=== PATIENT | female | born 1940 | race Caucasian/White ===

== ENCOUNTER 2017-01-30 19:04 | Emergency (ER) | payer MEDICARE ==
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
[2017-01-30 23:49] VITALS: BP 152/62
--- NOTE | 2017-01-31 07:46 | RAD ---
HISTORY: Left leg pain COMPARISONS: July 29, 2008 VIEWS: 2, Frontal and lateral views of the left knee FINDINGS: BONE DENSITY: Normal. BONES: There is no displaced fracture. JOINTS: There is advanced tricompartmental osteoarthritis, progressed from 2008. ALIGNMENT: There is no dislocation. SOFT TISSUES: Unremarkable. OTHER FINDINGS: None. IMPRESSION: ADVANCED OSTEOARTHRITIS. NO ACUTE OSSEOUS INJURY. IF SYMPTOMS PERSIST, RECOMMEND REPEAT IMAGING.
--- NOTE | 2017-01-31 07:53 | RAD ---
HISTORY: Left leg pain COMPARISONS: None VIEWS: 3, Frontal view of the pelvis with frontal and frog-leg views of the left hip FINDINGS: BONE DENSITY: Normal. BONES: There is no displaced fracture. JOINTS: There is moderate osteoarthritis of the hips bilaterally. ALIGNMENT: There is no dislocation. SOFT TISSUES: Unremarkable. OTHER FINDINGS: Degenerative changes are noted of the spine IMPRESSION: OSTEOARTHRITIS. NO ACUTE OSSEOUS INJURY. IF SYMPTOMS PERSIST, RECOMMEND REPEAT IMAGING.
== END 2017-01-30 23:49 | disposition home or self-care (01) ==
LOC: ED 19:04
DX: M79.662 Pain in left lower leg (principal)
CPT/HCPCS: 99282

== ENCOUNTER 2018-02-28 20:33 | Inpatient (IN) | payer MEDICARE ==
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
[2018-03-01 00:41] LABS: ABS Basophils 0.1 10^3/ul (0-0.2); ABS Eosinophils 0.2 10^3/ul (0-0.6); ABS Lymphocytes 2.2 10^3/ul (1.0-4.8); ABS Monocytes 0.7 10^3/ul (0-0.8); ABS Neutrophils 5.9 10^3/ul (1.5-7.7); ABS Nucleated RBC 0 10^3/ul; Eosinophil % 2.4 % (0-6); Hematocrit 40 % (35-47); Hemoglobin 13.2 g/dl (12.0-16.0); Mean Corpuscular HGB Conc 33 g/dl (31-36); Mean Corpuscular Hemoglobin 29 pg (27-31); Mean Corpuscular Volume 88 fL (80-97); Mean Platelet Volume 9.5 um3 (7.4-10.4); Nucleated Red Blood Cells % 0.1; Platelet Count 206 10^3/ul (150-450); Red Blood Count 4.59 10^6/ul (4.00-5.40); Red Cell Distribution Width 15 % (10.5-15); White Blood Count 9.1 10^3/ul (3.5-10.8)
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
[2018-03-01 00:57] LABS: INR 1.04 (0.77-1.02)
[2018-03-01 00:58] LABS: EGFR Non-African American 19.2 (>60)
[2018-03-01] MEDS ORDERED: Ondansetron ODT TAB* 4 MG PO PRN (01:24)
[2018-03-01] MEDS ORDERED: Acetaminophen TAB* 325 MG PO PRN (01:24)
[2018-03-01] MEDS ORDERED: Melatonin 3 MG TAB PO PRN (01:24)
[2018-03-01] MEDS ORDERED: NS 0.9% 1000 ML* 1,000 ML IV SCH (01:30)
[2018-03-01] MEDS: Insulin LISPRO* 1 UNITS UNIT SUBCUT SCH ×5 (03:36→16:41)
[2018-03-01] MEDS: NS 0.9% 1000 ML* 1,000 ML IV SCH ×2 (03:43→06:47)
[2018-03-01 07:59] LABS: EGFR Non-African American 26.7 (>60)
--- NOTE | 2018-03-01 08:03 | RAD ---
HISTORY: weight loss COMPARISONS: October 17, 2011 VIEWS: 1: frontal portable view of the chest at 12:25 AM FINDINGS: LINES AND TUBES: None. CARDIOMEDIASTINAL SILHOUETTE: The cardiomediastinal silhouette is normal for portable technique. PLEURA: The costophrenic angles are sharp. No pleural abnormalities are noted. LUNG PARENCHYMA: The lungs are clear. ABDOMEN: The upper abdomen is clear. There is no subphrenic gas. BONES AND SOFT TISSUES: Degenerative changes are noted along the spine. IMPRESSION: NO ACTIVE CARDIOPULMONARY DISEASE. R1
[2018-03-01] MEDS ORDERED: Magnesium Sulf 4 GM/100 ML IV* 4,000 MG/100 ML BAG IVPB ONE (08:34)
[2018-03-01] MEDS ORDERED: Calcium Gluconate INJ* 1 GM in NS 0.9% 50 ML* 50 ML IVPB ONE (08:39)
[2018-03-01] MEDS ORDERED: Pantoprazole IV* 40 MG IV SCH (09:00)
[2018-03-01] MEDS: Docusate CAP* 100 MG PO SCH ×2 (09:43→21:18)
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
[2018-03-01] MEDS: Sertraline* 100 MG TAB PO SCH (15:36)
[2018-03-01] MEDS: Aspirin 81 mg CHEW TAB* 81 MG TAB.CHEW PO SCH (15:36)
[2018-03-01] MEDS: Heparin VIAL(*) 5000 UNITS/ML VIAL (FIVE THOUSAND) SUBCUT SCH ×2 (15:36→21:19)
[2018-03-01] MEDS: Atenolol TAB* 50 MG PO SCH ×2 (15:36→15:50)
[2018-03-01] MEDS: Atorvastatin* 10 MG TAB PO SCH (17:16)
[2018-03-01] MEDS ORDERED: Ropinirole TAB* 0.5 MG TAB PO SCH ×2 (18:00→20:00)
[2018-03-01] MEDS: Mometasone/Formoter 200/5 MDI INH SCH (19:45)
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
[2018-03-01] MEDS: Ropinirole TAB* 0.5 MG TAB PO SCH (21:17)
[2018-03-01] MEDS: Pantoprazole IV* 40 MG IV SCH (21:19)
[2018-03-02] MEDS: Heparin VIAL(*) 5000 UNITS/ML VIAL (FIVE THOUSAND) SUBCUT SCH ×3 (05:00→21:30)
[2018-03-02 06:30] LABS: EGFR Non-African American 41.8 (>60)
[2018-03-02] MEDS: Mometasone/Formoter 200/5 MDI INH SCH ×2 (08:02→20:09)
[2018-03-02] MEDS: Insulin LISPRO* 1 UNITS UNIT SUBCUT SCH ×3 (08:07→16:37)
[2018-03-02] MEDS: Pantoprazole IV* 40 MG IV SCH ×2 (08:31→20:49)
[2018-03-02] MEDS: Sertraline* 100 MG TAB PO SCH (08:31)
[2018-03-02] MEDS: Oxybutynin XL TAB* 5 MG PO SCH (08:32)
[2018-03-02] MEDS: Docusate CAP* 100 MG PO SCH ×2 (08:32→20:48)
[2018-03-02] MEDS: Aspirin 81 mg CHEW TAB* 81 MG TAB.CHEW PO SCH (08:32)
[2018-03-02] MEDS: Atenolol TAB* 50 MG PO SCH (08:32)
--- NOTE | 2018-03-02 09:43 | RAD ---
Indication: Nausea, emesis. Real-time sonography of the right upper quadrant was performed. The liver measures 14 cm in length. Several echogenic foci are noted consistent with pneumobilia. No focal masses or intrahepatic duct dilatation is noted. Gallbladder is nonvisualized. Common duct is not visualized. Right kidney measures 11.9 x 4.9 x 5.2 cm. The visualized portions of the pancreas are unremarkable. IMPRESSION: There appears to be pneumobilia noted. The liver is echogenic. No focal lesions are noted. Gallbladder and common duct are not visualized.
[2018-03-02] MEDS ORDERED: Magnesium Oxide TAB* 400 MG PO ONE (15:40)
--- NOTE | 2018-03-02 15:41 | PN ---
Subjective Date of Service: 03/02/18 Interval History: Ms. Sanford feels hopeless. She continues to have no appetite and hasn't eaten anything yet today. No abdominal pain, no nausea, no diarrhea, no fevers. Objective Active Medications: Acetaminophen (Tylenol Tab*) 650 mg PO Q6H PRN PRN Reason: FEVER/PAIN Aspirin (Aspirin 81 Mg Chew Tab*) 81 mg PO DAILY [facility] Last Admin: 03/02/18 08:32 Dose: 81 mg Atenolol (Tenormin Tab*) 50 mg PO DAILY [facility] Last Admin: 03/02/18 08:32 Dose: Not Given Atorvastatin Calcium (Lipitor*) 20 mg PO 1700 [facility] Last Admin: 03/01/18 17:16 Dose: 20 mg Docusate Sodium (Colace Cap*) 200 mg PO BID [facility] Last Admin: 03/02/18 08:32 Dose: Not Given Heparin Sodium (Porcine) (Heparin Vial(*)) 5,000 units SUBCUT Q8HR [facility] Last Admin: 03/02/18 13:46 Dose: 5,000 units Sodium Chloride (Ns 0.9% 1000 Ml*) 1,000 mls @ 125 mls/hr IV PER RATE [facility] Insulin Human Lispro (Humalog*) 0 units SUBCUT AC [facility]; Protocol Last Admin: 03/02/18 11:53 Dose: 2 units Melatonin (Melatonin) 3 mg PO BEDTIME PRN; Protocol PRN Reason: Sleep Mometasone Furoate/Formoterol Fumar (Dulera 200/5 Mdi*) 2 puff INH BID [facility] Last Admin: 03/02/18 08:02 Dose: 2 puff Ondansetron HCl (Zofran Odt Tab*) 4 mg PO Q6H PRN PRN Reason: n/v Oxybutynin Chloride (Ditropan Xl Tab*) 5 mg PO DAILY [facility] Last Admin: 03/02/18 08:32 Dose: 5 mg Pantoprazole Sodium (Protonix Iv*) 40 mg IV BID [facility] Last Admin: 03/02/18 08:31 Dose: 40 mg Ropinirole HCl (Requip Tab*) 0.25 mg PO 2000 [facility] Last Admin: 03/01/18 21:17 Dose: 0.25 mg Sertraline HCl (Zoloft*) 100 mg PO DAILY [facility] Last Admin: 03/02/18 08:31 Dose: 100 mg Vital Signs - 8 hr 03/02/18 03/02/18 03/02/18 07:47 08:02 11:28 Temperature 97.6 F 97.8 F Pulse Rate 54 55 54 Respiratory 20 20 20 Rate Blood Pressure 112/56 118/95 (mmHg) O2 Sat by Pulse 98 98 100 Oximetry 03/02/18 03/02/18 15:12 15:30 Temperature 97.5 F Pulse Rate 56 Respiratory 22 Rate Blood Pressure 97/44 110/65 (mmHg) O2 Sat by Pulse 97 Oximetry Oxygen Devices in Use Now: None Appearance: alert, sad Eyes: No Scleral Icterus Ears/Nose/Mouth/Throat: NL Teeth, Lips, Gums Neck: NL Appearance and Movements; NL JVP Respiratory: Symmetrical Chest Expansion and Respiratory Effort Cardiovascular: NL Sounds; No Murmurs; No JVD Abdominal: NL Sounds; No Tenderness; No Distention, No Hepatosplenomegaly, - Lymphatic: No Cervical Adenopathy Extremities: No Edema Skin: No Rash or Ulcers Neurological: Alert and Oriented x 3 - Nutrition: Malnutrition Diagnosis/Plan Malnutrition Assessment by Registered Dietitian: Malnutrition Assessment Clinical Characteristics Chronic,Severe Malnutrition Assessment: - 15% wt loss x past 3 months Criteria - < 75% estimated energy expenditure for at least 1 month Malnutrition Assessment: - Will monitor for diet advancement and offer Interventions snacks/supplements as able. Malnutrition Assessment: Goals 1. Ultimately, intake will maintain lean body mass and hydration w/o additional undesired wt loss. Result Diagrams: 03/01/18 00:27 03/02/18 05:56 Assess/Plan/Problems-Billing Assessment: 77 year old female with history of HTN, DM, and depression admitted from PCP office for 40 lb weight loss. - Patient Problems (1) Unintentional weight loss Current Visit: Yes Status: Acute Code(s): R63.4 - ABNORMAL WEIGHT LOSS SNOMED Code(s): 392902741 Comment: malignancy and gastroparesis are on the differential, as is major depression gastric emptying study today, report pending gallbladder US showed pneumobilia but she has no RUQ pain and her LFTs are normal. a fistula could explain pneumobilia and her symptoms, but she does not have a good reason to have a fistula plan for EGD on Sunday and possibly a colonoscopy; GI following (2) Depression Current Visit: Yes Status: Acute Code(s): F32.9 - MAJOR DEPRESSIVE DISORDER , SINGLE EPISODE, UNSPECIFIED SNOMED Code(s): 04650741 Comment: This may be contributing to her weight loss She had been taking sertraline but did not get a refill she is agreeable to restarting it (3) HTN (hypertension) Current Visit: Yes Status: Acute Code(s): I10 - ESSENTIAL (PRIMARY) HYPERTENSION SNOMED Code(s): 07003831 Comment: bp at goal on home atenolol (4) Diabetes mellitus Current Visit: Yes Status: Acute Code(s): E11.9 - TYPE 2 DIABETES MELLITUS WITHOUT COMPLICATIONS SNOMED Code(s): 80907176 Comment: BG at goal on sliding scale
[2018-03-02] MEDS: Atorvastatin* 10 MG TAB PO SCH (16:37)
[2018-03-02] MEDS: Potassium Chloride LIQUID* 20 MEQ PACKET PO SCH (20:47)
[2018-03-02] MEDS: Ropinirole TAB* 0.5 MG TAB PO SCH (20:49)
[2018-03-02] MEDS: Nystatin TOP POWDER* 15 GM BTL TOPICAL SCH (20:50)
[2018-03-03] MEDS: Heparin VIAL(*) 5000 UNITS/ML VIAL (FIVE THOUSAND) SUBCUT SCH ×3 (05:59→21:23)
[2018-03-03 06:03] LABS: ABS Basophils 0 10^3/ul (0-0.2); ABS Eosinophils 0.2 10^3/ul (0-0.6); ABS Lymphocytes 1.5 10^3/ul (1.0-4.8); ABS Monocytes 0.5 10^3/ul (0-0.8); ABS Neutrophils 3.5 10^3/ul (1.5-7.7); ABS Nucleated RBC 0 10^3/ul; Eosinophil % 4.1 % (0-6); Hematocrit 33 % (35-47); Lymphocyte % 26.4 % (25-47); Mean Corpuscular HGB Conc 33 g/dl (31-36); Mean Corpuscular Hemoglobin 29 pg (27-31); Mean Corpuscular Volume 87 fL (80-97); Mean Platelet Volume 9.3 um3 (7.4-10.4); Nucleated Red Blood Cells % 0.1; Platelet Count 178 10^3/ul (150-450); Red Blood Count 3.83 10^6/ul (4.00-5.40); Red Cell Distribution Width 15 % (10.5-15); White Blood Count 5.8 10^3/ul (3.5-10.8)
[2018-03-03] MEDS ORDERED: Potassium Chloride LIQUID* 20 MEQ PACKET PO ONE (07:11)
[2018-03-03] MEDS ORDERED: Magnesium Sulfate IV* 3 GM in NS 0.9% 100 ML* 100 ML IVPB ONE (07:30)
[2018-03-03] MEDS: Insulin LISPRO* 1 UNITS UNIT SUBCUT SCH ×3 (08:28→17:03)
[2018-03-03] MEDS: Mometasone/Formoter 200/5 MDI INH SCH ×2 (08:32→19:57)
[2018-03-03] MEDS: Sertraline* 100 MG TAB PO SCH (08:54)
[2018-03-03] MEDS: Docusate CAP* 100 MG PO SCH ×2 (08:54→21:16)
[2018-03-03] MEDS: Oxybutynin XL TAB* 5 MG PO SCH (08:55)
[2018-03-03] MEDS: Aspirin 81 mg CHEW TAB* 81 MG TAB.CHEW PO SCH (08:55)
--- NOTE | 2018-03-03 09:16 | PN ---
Subjective Date of Service: 03/03/18 Interval History: No overnight events. Patient states she had cereal this morning which she has not been able to eat in a long time. States she got very nauseated but did not vomit. REmains nauseated. States she doesn't care about eating anymore. Talks about her family all grown up, not having anyone around and being bored at home. No abdominal pain. Normal BM this AM. No CP or SOB. Ambulating to the bathroom. Objective Active Medications: Acetaminophen (Tylenol Tab*) 650 mg PO Q6H PRN PRN Reason: FEVER/PAIN Aspirin (Aspirin 81 Mg Chew Tab*) 81 mg PO DAILY [facility] Last Admin: 03/03/18 08:55 Dose: 81 mg Atenolol (Tenormin Tab*) 50 mg PO DAILY [facility] Last Admin: 03/02/18 08:32 Dose: Not Given Atorvastatin Calcium (Lipitor*) 20 mg PO 1700 [facility] Last Admin: 03/02/18 16:37 Dose: 20 mg Docusate Sodium (Colace Cap*) 200 mg PO BID [facility] Last Admin: 03/03/18 08:54 Dose: Not Given Heparin Sodium (Porcine) (Heparin Vial(*)) 5,000 units SUBCUT Q8HR [facility] Last Admin: 03/03/18 05:59 Dose: 5,000 units Sodium Chloride (Ns 0.9% 1000 Ml*) 1,000 mls @ 125 mls/hr IV PER RATE [facility] Magnesium Sulfate 3 gm/ Sodium (Chloride) 106 mls @ 53 mls/hr IVPB ONCE ONE Stop: 03/03/18 09:29 Insulin Human Lispro (Humalog*) 0 units SUBCUT [facility]; Protocol Last Admin: 03/03/18 08:28 Dose: Not Given Magnesium Oxide (Magox 400 Tab*) 800 mg PO DAILY [facility] Melatonin (Melatonin) 3 mg PO BEDTIME PRN; Protocol PRN Reason: Sleep Mometasone Furoate/Formoterol Fumar (Dulera 200/5 Mdi*) 2 puff INH BID [facility] Last Admin: 03/03/18 08:32 Dose: 2 puff Nystatin (Nystatin Top Powder*) 1 applic TOPICAL TID [facility] Last Admin: 03/02/18 20:50 Dose: 1 dose Ondansetron HCl (Zofran Odt Tab*) 4 mg PO Q6H PRN PRN Reason: n/v Oxybutynin Chloride (Ditropan Xl Tab*) 5 mg PO DAILY [facility] Last Admin: 03/03/18 08:55 Dose: 5 mg Pantoprazole Sodium (Protonix Iv*) 40 mg IV BID [facility] Last Admin: 03/02/18 20:49 Dose: 40 mg Potassium Chloride (Klor-Con Liquid*) 40 meq PO BID [facility] Last Admin: 03/02/18 20:47 Dose: 40 meq Ropinirole HCl (Requip Tab*) 0.25 mg PO 2000 [facility] Last Admin: 03/02/18 20:49 Dose: 0.25 mg Sertraline HCl (Zoloft*) 100 mg PO DAILY [facility] Last Admin: 03/03/18 08:54 Dose: 100 mg Vital Signs - 8 hr 03/03/18 03/03/18 03:11 08:33 Temperature 98.6 F Pulse Rate 59 60 Respiratory 20 16 Rate Blood Pressure 121/48 (mmHg) O2 Sat by Pulse 97 97 Oximetry Oxygen Devices in Use Now: None Appearance: NAD Ears/Nose/Mouth/Throat: Mucous Membranes Moist, - - poor dentition Neck: Trachea Midline Respiratory: Symmetrical Chest Expansion and Respiratory Effort, Clear to Percussion Cardiovascular: RRR, - - systolic murmur Abdominal: NL Sounds; No Tenderness; No Distention, No Hepatosplenomegaly Extremities: No Edema Neurological: Alert and Oriented x 3, NL Muscle Strength and Tone - Nutrition: Malnutrition Diagnosis/Plan Malnutrition Assessment by Registered Dietitian: Malnutrition Assessment Clinical Characteristics Chronic,Severe Malnutrition Assessment: - 15% wt loss x past 3 months Criteria - < 75% estimated energy expenditure for at least 1 month Malnutrition Assessment: - Will monitor for diet advancement and offer Interventions snacks/supplements as able. Malnutrition Assessment: Goals 1. Ultimately, intake will maintain lean body mass and hydration w/o additional undesired wt loss. Result Diagrams: 03/03/18 05:28 03/03/18 05:28 Assess/Plan/Problems-Billing Assessment: 77 year old female with history of HTN, DM, and depression admitted from PCP office for 40 lb weight loss with N/V and dysguesia - Patient Problems (1) Unintentional weight loss Current Visit: Yes Status: Acute Code(s): R63.4 - ABNORMAL WEIGHT LOSS SNOMED Code(s): 553046768 Comment: A. Associated with N/V and dysguesia malignancy and gastroparesis are on the differential, as is major depression gastric emptying study Sunday gallbladder US showed pneumobilia but no pain or lab abnormalities - No hx of ERCP/sphincterotomy. Will obtain CT abd/pelvis as gallbladder and biliary tree was not visualized on ultrasound plan for EGD on Sunday and possibly a colonoscopy; GI following Start calorie count (2) Electrolyte abnormality Current Visit: Yes Status: Acute Code(s): E87.8 - OTH DISORDERS OF ELECTROLYTE AND FLUID BALANCE, NEC SNOMED Code(s): 749572715 Comment: A. Continues to have hypokalemia and hypomagnesemia - Likely related to poor nutritional intake Plan Continue K (only got one dose thus far) Mg 3 gm and oral daily Repeat labs in AM (3) Nausea & vomiting Current Visit: Yes Status: Acute Code(s): R11.2 - NAUSEA WITH VOMITING, UNSPECIFIED SNOMED Code(s): 92488273 Comment: A. As above. WOrk up unremarkable thus far GI involved Plan EGD in AM (4) Depression Current Visit: Yes Status: Acute Code(s): F32.9 - MAJOR DEPRESSIVE DISORDER , SINGLE EPISODE, UNSPECIFIED SNOMED Code(s): 94368146 Comment: This may be contributing to her weight loss Continue sertraline (5) Diabetes mellitus Current Visit: Yes Status: Acute Code(s): E11.9 - TYPE 2 DIABETES MELLITUS WITHOUT COMPLICATIONS SNOMED Code(s): 06097675 Comment: A. HgbA1c 7.9 BG at goal on sliding scale Continue lispro sliding scale Continue to hold oral agents (6) HTN (hypertension) Current Visit: Yes Status: Acute Code(s): I10 - ESSENTIAL (PRIMARY) HYPERTENSION SNOMED Code(s): 73497975 Comment: Low normal This AM in the 90's systolic - drop likely related to weight loss Plan Decrease atenolol dose (7) Normocytic anemia Current Visit: Yes Status: Acute Code(s): D64.9 - ANEMIA, UNSPECIFIED SNOMED Code(s): 129154179 Comment: A/P Drop in H/H from admission Not symptomatic Check hemoccult and iron studies, b12 (8) DVT prophylaxis Current Visit: Yes Status: Acute Code(s): RYH3340 - SNOMED Code(s): 174138380 Comment: Heparin SQ TID (9) DNR (do not resuscitate) Current Visit: Yes Status: Acute Status and Disposition: Awaiting EGD and possible colonoscopy for work up of N/V and weight loss
[2018-03-03] MEDS: Pantoprazole IV* 40 MG IV SCH ×2 (09:51→20:23)
[2018-03-03] MEDS: Potassium Chloride LIQUID* 20 MEQ PACKET PO SCH ×2 (11:03→20:32)
[2018-03-03] MEDS: Nystatin TOP POWDER* 15 GM BTL TOPICAL SCH ×3 (11:04→20:36)
[2018-03-03] MEDS: Atenolol TAB* 25 MG PO SCH (11:05)
[2018-03-03] MEDS: Atenolol TAB* 50 MG PO SCH (11:14)
[2018-03-03] MEDS ORDERED: Iodixanol* (CONTRAST) 320 MG/ML 100 ML SDV IV ONE (14:15)
--- NOTE | 2018-03-03 15:30 | RAD ---
Indication: Nausea and vomiting with weight loss. CT of the abdomen and pelvis was performed after oral and IV contrast administration. Coronal and sagittal reconstructed images were obtained. No prior study is available for comparison. The lung bases demonstrate a peripheral nodule in the left lower lobe measuring 4 mm. This nodule was likely present on a previous exam dated September 29, 2003. No pleural fluid is identified. The heart demonstrates no pericardial effusion. The liver is normal in size. There are no focal lesions noted. There appears to be biliary air in the left lobe of liver. Patient appears to be status post cholecystectomy. There also appears to be air within the common bile duct. The pancreas demonstrates no mass or pancreatic duct dilatation. The spleen is normal in size. No adrenal lesions are noted. The kidneys demonstrate symmetric nephrograms without hydronephrosis. Atherosclerotic aorta is noted. CT of the pelvis demonstrates diverticulosis. No definite evidence of diverticulitis is noted. No dilated loops of bowel are noted. No evidence of bowel obstruction is noted. There is an anterior abdominal wall hernia containing omentum. Multilevel degenerative disc disease is noted in the lumbar spine. IMPRESSION: Anterior abdominal wall hernia containing omentum. There are no evidence of bowel obstruction. There is pneumobilia of uncertain etiology. Air is noted in the common duct. Clinical correlation with history of recent sphincterotomy is suggested. Patient is status post cholecystectomy.
[2018-03-03] MEDS: Atorvastatin* 10 MG TAB PO SCH (17:16)
[2018-03-03] MEDS: Ropinirole TAB* 0.5 MG TAB PO SCH (21:26)
[2018-03-03] MEDS: NS 0.9% 1000 ML* 1,000 ML IV SCH (23:55)
[2018-03-04 05:56] LABS: ABS Basophils 0 10^3/ul (0-0.2); ABS Eosinophils 0.3 10^3/ul (0-0.6); ABS Lymphocytes 1.5 10^3/ul (1.0-4.8); ABS Monocytes 0.5 10^3/ul (0-0.8); ABS Neutrophils 3.4 10^3/ul (1.5-7.7); ABS Nucleated RBC 0 10^3/ul; Eosinophil % 4.6 % (0-6); Hematocrit 33 % (35-47); Hemoglobin 10.9 g/dl (12.0-16.0); Lymphocyte % 26.8 % (25-47); Mean Corpuscular HGB Conc 33 g/dl (31-36); Mean Corpuscular Hemoglobin 29 pg (27-31); Mean Corpuscular Volume 88 fL (80-97); Mean Platelet Volume 9.4 um3 (7.4-10.4); Nucleated Red Blood Cells % 0.1; Platelet Count 160 10^3/ul (150-450); Red Blood Count 3.73 10^6/ul (4.00-5.40); Red Cell Distribution Width 15 % (10.5-15); White Blood Count 5.8 10^3/ul (3.5-10.8)
[2018-03-04] MEDS: Heparin VIAL(*) 5000 UNITS/ML VIAL (FIVE THOUSAND) SUBCUT SCH ×3 (06:09→21:39)
[2018-03-04 06:14] LABS: EGFR Non-African American 53.4 (>60)
[2018-03-04] MEDS ORDERED: Magnesium Sulfate 2 GM IV* 2 GM/50 ML BAG IVPB ONE (07:25)
[2018-03-04] MEDS: Mometasone/Formoter 200/5 MDI INH SCH ×2 (08:01→19:49)
--- NOTE | 2018-03-04 09:38 | PN ---
Subjective Date of Service: 03/04/18 Interval History: HOSPITALIST PROGRESS NOTE Patient seen and examined at bedside. She feels a little better today. Denies abdominal pain this AM, no N/V so far, but NPO for EGD. States "everything tastes flat, I don't see the point in eating ". Family History: Unchanged from Admission Social History: Unchanged from Admission Past Medical History: Unchanged from Admission Objective Active Medications: Acetaminophen (Tylenol Tab*) 650 mg PO Q6H PRN PRN Reason: FEVER/PAIN Aspirin (Aspirin 81 Mg Chew Tab*) 81 mg PO DAILY [facility] Last Admin: 03/03/18 08:55 Dose: 81 mg Atenolol (Tenormin Tab*) 12.5 mg PO DAILY [facility] Last Admin: 03/03/18 11:05 Dose: 12.5 mg Atorvastatin Calcium (Lipitor*) 20 mg PO 1700 [facility] Last Admin: 03/03/18 17:16 Dose: 20 mg Docusate Sodium (Colace Cap*) 200 mg PO BID [facility] Last Admin: 03/03/18 21:16 Dose: Not Given Heparin Sodium (Porcine) (Heparin Vial(*)) 5,000 units SUBCUT Q8HR [facility] Last Admin: 03/04/18 06:09 Dose: 5,000 units Sodium Chloride (Ns 0.9% 1000 Ml*) 1,000 mls @ 125 mls/hr IV PER RATE [facility] Last Admin: 03/03/18 23:55 Dose: 125 mls/hr Potassium Chloride (Potassium Chloride 10 Meq/50 Ml Ivpremix*) 10 meq in 50 mls @ 50 mls/hr IV Q1H [facility] Stop: 03/04/18 10:59 Insulin Human Lispro (Humalog*) 0 units SUBCUT AC [facility]; Protocol Last Admin: 03/03/18 17:03 Dose: Not Given Magnesium Oxide (Magox 400 Tab*) 800 mg PO DAILY [facility] Melatonin (Melatonin) 3 mg PO BEDTIME PRN; Protocol PRN Reason: Sleep Mometasone Furoate/Formoterol Fumar (Dulera 200/5 Mdi*) 2 puff INH BID [facility] Last Admin: 03/04/18 08:01 Dose: 2 puff Nystatin (Nystatin Top Powder*) 1 applic TOPICAL TID [facility] Last Admin: 03/03/18 20:36 Dose: 1 dose Ondansetron HCl (Zofran Odt Tab*) 4 mg PO Q6H PRN PRN Reason: n/v Oxybutynin Chloride (Ditropan Xl Tab*) 5 mg PO DAILY [facility] Last Admin: 03/03/18 08:55 Dose: 5 mg Pantoprazole Sodium (Protonix Iv*) 40 mg IV BID [facility] Last Admin: 03/03/18 20:23 Dose: 40 mg Potassium Chloride (Klor-Con Liquid*) 40 meq PO BID [facility] Last Admin: 03/03/18 20:32 Dose: 40 meq Ropinirole HCl (Requip Tab*) 0.25 mg PO 1999 [facility] Last Admin: 03/03/18 21:26 Dose: 0.25 mg Sertraline HCl (Zoloft*) 100 mg PO DAILY [facility] Last Admin: 03/03/18 08:54 Dose: 100 mg Vital Signs - 8 hr 03/04/18 08:44 Pulse Rate 66 Respiratory 18 Rate O2 Sat by Pulse 98 Oximetry Oxygen Devices in Use Now: None Appearance: Pleasant obese lady lying in bed in NAD. Eyes: No Scleral Icterus Ears/Nose/Mouth/Throat: Mucous Membranes Moist Neck: Trachea Midline Respiratory: Symmetrical Chest Expansion and Respiratory Effort, Clear to Auscultation Cardiovascular: RRR - Normal S1 and S2, +SM Abdominal: NL Sounds; No Tenderness; No Distention - obese Neurological: Alert and Oriented x 3, NL Muscle Strength and Tone - Nutrition: Malnutrition Diagnosis/Plan Malnutrition Assessment by Registered Dietitian: Malnutrition Assessment Clinical Characteristics Chronic,Severe Malnutrition Assessment: - 15% wt loss x past 3 months Criteria - < 75% estimated energy expenditure for at least 1 month Malnutrition Assessment: - Will monitor for diet advancement and offer Interventions snacks/supplements as able. Malnutrition Assessment: Goals 1. Ultimately, intake will maintain lean body mass and hydration w/o additional undesired wt loss. Result Diagrams: 03/04/18 05:09 03/04/18 05:09 Assess/Plan/Problems-Billing Assessment: Mrs Sanford is a 77 year old female with history of HTN, DM, morbid obesity with BMI 50, and depression admitted from PCP office for 40 lb weight loss with N/V and dysgeusia - Patient Problems (1) Unintentional weight loss Comment: - Associated with N/V and dysgeusia. - Malignancy and gastroparesis are on the differential, as is major depression. - For gastric emptying study and EGD today. - Gallbladder US showed pneumobilia but no pain or lab abnormalities - No hx of ERCP/sphincterotomy. - CT abd/pelvis showed similar findings - will wait GI input. (2) Electrolyte abnormality Comment: - Continue to replete potassium and magnesium. (3) Depression Comment: - May be contributing to her weight loss. - Continue sertraline. (4) Diabetes mellitus Comment: - HgbA1c 7.9 - Continue lispro sliding scale. (5) HTN (hypertension) Comment: - Controlled on lower dose Atenolol. (6) DVT prophylaxis Comment: - SQ Heparin. (7) DNR (do not resuscitate) Status and Disposition: Awaiting EGD and possible colonoscopy for work up of N/V and weight loss
[2018-03-04] MEDS: Insulin LISPRO* 1 UNITS UNIT SUBCUT SCH ×3 (09:47→18:35)
[2018-03-04] MEDS: Docusate CAP* 100 MG PO SCH ×2 (09:57→21:52)
[2018-03-04] MEDS: Oxybutynin XL TAB* 5 MG PO SCH (09:57)
[2018-03-04] MEDS: Magnesium Oxide TAB* 400 MG PO SCH (09:57)
[2018-03-04] MEDS: Atenolol TAB* 25 MG PO SCH (09:57)
[2018-03-04] MEDS: Aspirin 81 mg CHEW TAB* 81 MG TAB.CHEW PO SCH (09:57)
[2018-03-04] MEDS: Sertraline* 100 MG TAB PO SCH (09:58)
[2018-03-04] MEDS: Potassium Chloride LIQUID* 20 MEQ PACKET PO SCH ×2 (09:58→21:35)
[2018-03-04] MEDS: Nystatin TOP POWDER* 15 GM BTL TOPICAL SCH ×3 (13:15→21:37)
[2018-03-04] MEDS: Pantoprazole IV* 40 MG IV SCH ×2 (15:51→19:30)
[2018-03-04] MEDS ORDERED: fentaNYL* 50 MCG/ML 2 ML VIAL (100 MCG VIAL) ONE (16:09)
[2018-03-04] MEDS ORDERED: Midazolam* 1 MG/ML 10 ML VIAL (10 MG) ONE (16:09)
[2018-03-04] MEDS: KCL 10 MEQ/50 ML IVPREMIX* 10 MEQ/50 ML BAG IV SCH ×2 (17:58→19:17)
[2018-03-04] MEDS: Atorvastatin* 10 MG TAB PO SCH (19:27)
[2018-03-04] MEDS: Ropinirole TAB* 0.5 MG TAB PO SCH (19:28)
--- NOTE | 2018-03-04 21:55 | PN ---
Hospitalist Progress Note Date of Service: 03/04/18 Called from nursing staff with complaints of burning to RUE with NS infusing via midline. No redness or swelling. Will try for PIV to continue ivf. Will have nursing call vascular team in AM to eval midline.
--- NOTE | 2018-03-05 01:15 | RAD ---
EXAM: US Duplex Right Upper Extremity Veins CLINICAL HISTORY: 77 years old, female; Pain; Arn, upper and arm; Right; Patient HX: Patient has iv in place on inner upper arm with large dressing TECHNIQUE: Real-time duplex ultrasound scan of the right upper extremity veins integrating B-mode two-dimensional vascular structure, Doppler spectral analysis, color flow Doppler imaging and compression. COMPARISON: No relevant prior studies available. FINDINGS: Extremely limited study secondary to patient body habitus and overlying dressing on the upper inner arm. Unable to visualize brachial or basilic veins. Deep veins: No DVT in the internal jugular, subclavian, axillary , radial and ulnar veins. The veins demonstrate normal color flow, are normally compressible, with normal phasic flow and/or augmentation response. Superficial veins: Unremarkable. No thrombus in the visualized in the cephalic veins. Soft tissues: No acute findings. IMPRESSION: Extremely limited study secondary to patient body habitus and overlying dressing on the upper inner arm. Unable to visualize brachial or basilic veins. No thrombus in the visualized veins.
[2018-03-05] MEDS: Heparin VIAL(*) 5000 UNITS/ML VIAL (FIVE THOUSAND) SUBCUT SCH ×3 (05:46→21:27)
[2018-03-05 06:45] LABS: EGFR Non-African American 60.3 (>60)
[2018-03-05] MEDS ORDERED: Magnesium Sulfate IV* 3 GM in NS 0.9% 100 ML* 100 ML IVPB ONE (08:03)
[2018-03-05] MEDS: Insulin LISPRO* 1 UNITS UNIT SUBCUT SCH ×3 (08:36→17:50)
[2018-03-05] MEDS: Mometasone/Formoter 200/5 MDI INH SCH ×2 (09:01→19:41)
[2018-03-05] MEDS: Atenolol TAB* 25 MG PO SCH (10:59)
[2018-03-05] MEDS: Docusate CAP* 100 MG PO SCH ×2 (10:59→21:23)
[2018-03-05] MEDS: Magnesium Oxide TAB* 400 MG PO SCH (10:59)
[2018-03-05] MEDS: Nystatin TOP POWDER* 15 GM BTL TOPICAL SCH ×3 (10:59→21:24)
[2018-03-05] MEDS: Potassium Chloride LIQUID* 20 MEQ PACKET PO SCH ×2 (10:59→21:22)
[2018-03-05] MEDS: Aspirin 81 mg CHEW TAB* 81 MG TAB.CHEW PO SCH (10:59)
[2018-03-05] MEDS: Oxybutynin XL TAB* 5 MG PO SCH (10:59)
[2018-03-05] MEDS: Sertraline* 100 MG TAB PO SCH (11:00)
[2018-03-05] MEDS ORDERED: NS 0.9% 100 ML* 100 ML ONE (11:05)
--- NOTE | 2018-03-05 12:05 | PN ---
Subjective Date of Service: 03/05/18 Interval History: HOSPITALIST PROGRESS NOTE Patient seen and examined at bedside. She offers no new complaints. Anorexia, nausea persist. Family History: Unchanged from Admission Social History: Unchanged from Admission Past Medical History: Unchanged from Admission Objective Active Medications: Acetaminophen (Tylenol Tab*) 650 mg PO Q6H PRN PRN Reason: FEVER/PAIN Aspirin (Aspirin 81 Mg Chew Tab*) 81 mg PO DAILY [facility] Last Admin: 03/05/18 10:59 Dose: Not Given Atenolol (Tenormin Tab*) 12.5 mg PO DAILY [facility] Last Admin: 03/05/18 10:59 Dose: Not Given Atorvastatin Calcium (Lipitor*) 20 mg PO 1700 [facility] Last Admin: 03/04/18 19:27 Dose: 20 mg Docusate Sodium (Colace Cap*) 200 mg PO BID [facility] Last Admin: 03/05/18 10:59 Dose: Not Given Heparin Sodium (Porcine) (Heparin Vial(*)) 5,000 units SUBCUT Q8HR [facility] Last Admin: 03/05/18 05:46 Dose: 5,000 units Sodium Chloride (Ns 0.9% 1000 Ml*) 1,000 mls @ 125 mls/hr IV PER RATE [facility] Last Admin: 03/03/18 23:55 Dose: 125 mls/hr Insulin Human Lispro (Humalog*) 0 units SUBCUT AC [facility]; Protocol Last Admin: 03/05/18 08:36 Dose: Not Given Magnesium Oxide (Magox 400 Tab*) 800 mg PO DAILY [facility] Last Admin: 03/05/18 10:59 Dose: Not Given Melatonin (Melatonin) 3 mg PO BEDTIME PRN; Protocol PRN Reason: Sleep Mometasone Furoate/Formoterol Fumar (Dulera 200/5 Mdi*) 2 puff INH BID [facility] Last Admin: 03/05/18 09:01 Dose: 2 puff Nystatin (Nystatin Top Powder*) 1 applic TOPICAL TID [facility] Last Admin: 03/05/18 10:59 Dose: Not Given Ondansetron HCl (Zofran Odt Tab*) 4 mg PO Q6H PRN PRN Reason: n/v Oxybutynin Chloride (Ditropan Xl Tab*) 5 mg PO DAILY [facility] Last Admin: 03/05/18 10:59 Dose: Not Given Pantoprazole Sodium (Protonix Iv*) 40 mg IV BID@0600,1800 [facility] Last Admin: 03/04/18 19:30 Dose: 40 mg Potassium Chloride (Klor-Con Liquid*) 40 meq PO BID [facility] Last Admin: 03/05/18 10:59 Dose: Not Given Ropinirole HCl (Requip Tab*) 0.25 mg PO 2000 [facility] Last Admin: 03/04/18 19:28 Dose: 0.25 mg Sertraline HCl (Zoloft*) 100 mg PO DAILY [facility] Last Admin: 03/05/18 11:00 Dose: Not Given Vital Signs - 8 hr 03/05/18 03/05/18 07:30 09:01 Temperature 97.8 F Pulse Rate 68 68 Respiratory 18 16 Rate Blood Pressure 118/48 (mmHg) O2 Sat by Pulse 93 94 Oximetry Oxygen Devices in Use Now: None Appearance: Elderly obese lady lying in bed in NAD. Eyes: No Scleral Icterus Ears/Nose/Mouth/Throat: Mucous Membranes Moist Neck: Trachea Midline Respiratory: Symmetrical Chest Expansion and Respiratory Effort, Clear to Auscultation Cardiovascular: RRR - Normal S1 and S2 Abdominal: NL Sounds; No Tenderness; No Distention - obese Neurological: Alert and Oriented x 3, NL Muscle Strength and Tone - Nutrition: Malnutrition Diagnosis/Plan Malnutrition Assessment by Registered Dietitian: Malnutrition Assessment Clinical Characteristics Chronic,Severe Malnutrition Assessment: - 15% wt loss x past 3 months Criteria - < 75% estimated energy expenditure for at least 1 month Malnutrition Assessment: Pt willing to accept Ensure Enlive with meals as Interventions of 03/03 (350 kcal, 20 g pro per serving) Malnutrition Assessment: Goals 1. Ultimately, intake will maintain lean body mass and hydration w/o additional undesired wt loss. Result Diagrams: 03/04/18 05:09 03/05/18 06:14 Assess/Plan/Problems-Billing Assessment: Mrs Sanford is a 77 year old female with history of HTN, DM, morbid obesity with BMI 50, and depression admitted from PCP office for 40 lb weight loss with N/V and dysgeusia - Patient Problems (1) Unintentional weight loss Comment: - Associated with N/V and dysgeusia. - Malignancy and gastroparesis are on the differential, as is major depression. - EGD showed Farr's esophagus, but unclear if this could justify her symptoms and weight loss. - For gastric emptying study today. - Gallbladder US and CT abd/pelvis showed pneumobilia but no pain or lab abnormalities - No hx of ERCP but had cholecystectomy (with possible sphincterotomy). - Awaiting GI f/u to see if colonoscopy is indicated. (2) Electrolyte abnormality Comment: - Continue to replete potassium and magnesium. (3) Depression Comment: - May be contributing to her weight loss. - Continue sertraline. (4) Diabetes mellitus Comment: - HgbA1c 7.9 - Continue lispro sliding scale. (5) HTN (hypertension) Comment: - Controlled on lower dose Atenolol. (6) DVT prophylaxis Comment: - SQ Heparin. (7) DNR (do not resuscitate) Status and Disposition: Inpatient to complete work up of N/V and weight loss
--- NOTE | 2018-03-05 14:15 | RAD ---
INDICATION: Weight loss, vomiting, negative EGD. Comparison: Correlation is made with a prior CT of the abdomen and pelvis from March 03, 2018. Technique: The patient was given an intravenous injection of 1.1 mCi of technetium 99m sulfur colloid mixed with oatmeal. Multiple images of the left upper quadrant were obtained. FINDINGS: There is normal distribution of radiopharmaceutical. The stomach appeared to empty normally. The half-time for emptying was 42 minutes which is within normal limits. IMPRESSION: NORMAL STUDY.
[2018-03-05] MEDS: Pantoprazole IV* 40 MG IV SCH ×2 (18:38→18:39)
[2018-03-05] MEDS: Atorvastatin* 10 MG TAB PO SCH ×2 (18:39→20:06)
[2018-03-05] MEDS: Ropinirole TAB* 0.5 MG TAB PO SCH (20:07)
[2018-03-05] MEDS: NS 0.9% 1000 ML* 1,000 ML IV SCH (20:07)
--- NOTE | 2018-03-05 21:10 | CONS ---
GASTROENTEROLOGY CONSULT FOLLOWUP: DATE: 03/05/18 CONSULTING PHYSICIAN: Quita Sandy HISTORY OF PRESENT ILLNESS: This morbidly obese 77-year-old woman was admitted 4 days ago with complaint of nausea and vomiting and having lost 40 pounds. She is a diabetic, known to be somewhat noncompliant with her medications and A1c was 7.9. She reportedly also does not take her antidepressant. She has been on Nexium for 11 or 12 years or more and was followed by Dr Quinteros for Farr's esophagus which has not had advanced features. Dr. Doe saw her and additional studies have been done including gallbladder ultrasound - no gallbladder seen, abdominal CT scan - no gallbladder seen and umbilical hernia containing omentum, gastric emptying scan normal. She also had upper endoscopy showing smooth Farr's esophagus and normal stomach and duodenum. Admitting labs did show a hemoglobin of 13.2, but now 3 days later 10.9 with normal platelets at 160. Albumin 3.7 on admission. LFTs normal with alkaline phosphatase 88. An iron panel normal 68 with TIBC 241, 28% saturated. Vitamin B12 403. TSH 1.53. PHYSICAL EXAM: Today, on exam, she is lying in bed (by herself) saying she is tired. She denies pain anywhere. She has not been vomiting. She denies having had a cholecystectomy. Dr. Quinteros' note from 2006 before one of her gastroscopies does specify that she has never had any surgery. Her abdomen does not show any surgical scars, though the umbilicus is deformed. The abdomen is soft and nontender and there is no obvious mass. Perianal inspection and digital rectal exam was normal with mucoid loose yellow stool submitted for Hemoccult. There was no rectal mass. IMPRESSION: My feeling is the patient probably is losing weight on the basis of depression and age-related involution, which is going to be more evident in somebody who starts the process morbidly obese. There is no obvious alarm symptom or finding to pursue at this time and getting her antidepressant and maximizing social support would seem to be appropriate. Physical therapy might help. The pneumobilia seen on CT scan is a little mysterious. She might have had an ERCP before a laparoscopic cholecystectomy and she might have duodenal diverticulum somewhat deforming the papilla (could easily escape direct views with the standard gastroscope). It may not really matter as with her absolutely normal LFTs there is certainly no sign of biliary obstruction. At this time, no further studies seem a priority. Addendum: stool OB negative [id number]/[facility] #: [id number] MTDD
--- NOTE | 2018-03-05 21:52 | PRO ---
CC: Dr. Pittman.* DATE OF PROCEDURE: 03/04/18 - ROOM #[id number] PROCEDURE: EGD. INDICATION: Weight loss. REFERRING PHYSICIAN: Dr. Pittman. MEDICATIONS GIVEN: 100 mcg of IV fentanyl, 10 mg IV Versed. PROCEDURE: After the EGD procedure, including the risks, benefits, and alternatives not limited to perforation, surgery, and/or were explained to the patient. Written consent was then obtained. IV medication was given. A bite block was placed between the teeth. An Olympus gastroscope was then inserted into the patient's mouth, advanced down the esophagus, into the stomach , into the distal duodenum. In the esophagus, at the GE junction, she did have Farr's mucosa. Biopsies were obtained. The scope was advanced through the widely patent GE junction into the body of the stomach. Retroflex view was unremarkable. Forward review revealed gastritis. Biopsies were obtained. The scope was advanced through the widely patent pylorus and duodenal bulb into the distal duodenum both of which were unremarkable. The scope was then withdrawn from the patient. She tolerated the procedure well and returned to the recovery room in stable condition. IMPRESSION: 1. Complete upper endoscopy into the distal duodenum with biopsies. 2. Farr's mucosa with status post biopsy. 3. Gastric body biopsies. 4. We will follow up on all the biopsies and report back to the patient at that time. [id number]/[facility] #: [id number] MTDD
[2018-03-06] MEDS: NS 0.9% 1000 ML* 1,000 ML IV SCH (04:18)
[2018-03-06] MEDS: Pantoprazole IV* 40 MG IV SCH ×2 (05:20→17:44)
[2018-03-06] MEDS: Heparin VIAL(*) 5000 UNITS/ML VIAL (FIVE THOUSAND) SUBCUT SCH ×3 (05:20→21:53)
[2018-03-06] MEDS: Insulin LISPRO* 1 UNITS UNIT SUBCUT SCH ×3 (07:35→16:50)
[2018-03-06] MEDS: Mometasone/Formoter 200/5 MDI INH SCH ×2 (07:39→19:56)
[2018-03-06] MEDS: Docusate CAP* 100 MG PO SCH ×2 (10:07→21:53)
[2018-03-06] MEDS: Oxybutynin XL TAB* 5 MG PO SCH (10:07)
[2018-03-06] MEDS: Atenolol TAB* 25 MG PO SCH (10:07)
[2018-03-06] MEDS: Magnesium Oxide TAB* 400 MG PO SCH (10:07)
[2018-03-06] MEDS: Sertraline* 100 MG TAB PO SCH (10:07)
[2018-03-06] MEDS: Aspirin 81 mg CHEW TAB* 81 MG TAB.CHEW PO SCH (10:08)
[2018-03-06] MEDS: Potassium Chloride LIQUID* 20 MEQ PACKET PO SCH ×3 (10:09→21:53)
[2018-03-06] MEDS: Nystatin TOP POWDER* 15 GM BTL TOPICAL SCH ×3 (10:09→21:53)
--- NOTE | 2018-03-06 17:36 | PN ---
Subjective Date of Service: 03/06/18 Interval History: Patient is feeling better. Patient states she still has some nausea with eating but that it is improving. Patient denies CP, SOB, N/V, abdominal pain, dysuria, dizziness, or other pain. Family History: Unchanged from Admission Social History: Unchanged from Admission Past Medical History: Unchanged from Admission Objective Active Medications: Acetaminophen (Tylenol Tab*) 650 mg PO Q6H PRN PRN Reason: FEVER/PAIN Aspirin (Aspirin 81 Mg Chew Tab*) 81 mg PO DAILY [facility] Last Admin: 03/06/18 10:08 Dose: 81 mg Atenolol (Tenormin Tab*) 12.5 mg PO DAILY [facility] Last Admin: 03/06/18 10:07 Dose: 12.5 mg Atorvastatin Calcium (Lipitor*) 20 mg PO 1700 [facility] Last Admin: 03/05/18 20:06 Dose: 20 mg Docusate Sodium (Colace Cap*) 200 mg PO BID [facility] Last Admin: 03/06/18 10:07 Dose: 200 mg Heparin Sodium (Porcine) (Heparin Vial(*)) 5,000 units SUBCUT Q8HR [facility] Last Admin: 03/06/18 14:01 Dose: 5,000 units Insulin Human Lispro (Humalog*) 0 units SUBCUT AC [facility]; Protocol Last Admin: 03/06/18 16:50 Dose: Not Given Magnesium Oxide (Magox 400 Tab*) 800 mg PO DAILY [facility] Last Admin: 03/06/18 10:07 Dose: 800 mg Melatonin (Melatonin) 3 mg PO BEDTIME PRN; Protocol PRN Reason: Sleep Mometasone Furoate/Formoterol Fumar (Dulera 200/5 Mdi*) 2 puff INH BID [facility] Last Admin: 03/06/18 07:39 Dose: 2 puff Nystatin (Nystatin Top Powder*) 1 applic TOPICAL TID [facility] Last Admin: 03/06/18 14:01 Dose: 1 dose Ondansetron HCl (Zofran Odt Tab*) 4 mg PO Q6H PRN PRN Reason: n/v Oxybutynin Chloride (Ditropan Xl Tab*) 5 mg PO DAILY [facility] Last Admin: 03/06/18 10:07 Dose: 5 mg Pantoprazole Sodium (Protonix Iv*) 40 mg IV BID@0600,1800 [facility] Last Admin: 03/06/18 05:20 Dose: 40 mg Potassium Chloride (Klor-Con Liquid*) 40 meq PO BID [facility] Last Admin: 03/06/18 10:18 Dose: Not Given Ropinirole HCl (Requip Tab*) 0.25 mg PO 1999 [facility] Last Admin: 03/05/18 20:07 Dose: 0.25 mg Sertraline HCl (Zoloft*) 200 mg PO DAILY [facility] Vital Signs - 8 hr 03/06/18 03/06/18 11:47 15:19 Temperature 97.8 F 97.4 F Pulse Rate 69 65 Respiratory 16 16 Rate Blood Pressure 131/53 139/71 (mmHg) O2 Sat by Pulse 100 97 Oximetry Oxygen Devices in Use Now: None Appearance: Patient is a 77yo female who appears stated age and is sitting in the bed in [facility]. Eyes: No Scleral Icterus, PERRLA Ears/Nose/Mouth/Throat: NL Teeth, Lips, Gums, Clear Oropharnyx, Mucous Membranes Moist Neck: NL Appearance and Movements; NL JVP, Trachea Midline Respiratory: Symmetrical Chest Expansion and Respiratory Effort, Clear to Auscultation Cardiovascular: NL Sounds; No Murmurs; No JVD, RRR, No Edema Abdominal: NL Sounds; No Tenderness; No Distention, No Hepatosplenomegaly Lymphatic: No Cervical Adenopathy Extremities: No Edema, No Clubbing, Cyanosis Skin: No Rash or Ulcers, No Nodules or Sclerosis Neurological: Alert and Oriented x 3, NL Sensation, NL Muscle Strength and Tone , - - CN II-XII intact. - Nutrition: Malnutrition Diagnosis/Plan Malnutrition Assessment by Registered Dietitian: Malnutrition Assessment Clinical Characteristics Chronic,Severe Malnutrition Assessment: - 15% wt loss x past 3 months Criteria - < 75% estimated energy expenditure for at least 1 month Malnutrition Assessment: Pt willing to accept Ensure Enlive with meals as Interventions of 03/03 (350 kcal, 20 g pro per serving) Malnutrition Assessment: Goals 1. Ultimately, intake will maintain lean body mass and hydration w/o additional undesired wt loss. Result Diagrams: 03/04/18 05:09 03/05/18 06:14 Microbiology and Other Data: Microbiology 03/05/18 17:00 Stool Occult Blood (MARCIE) - Final Stool Assess/Plan/Problems-Billing Assessment: Mrs Sanford is a 77 year old female with history of HTN, DM, morbid obesity with BMI 50, and depression admitted from PCP office for 40 lb weight loss with N/V and dysgeusia who has had a negative workup so far. - Patient Problems (1) Unintentional weight loss Current Visit: Yes Status: Acute Code(s): R63.4 - ABNORMAL WEIGHT LOSS SNOMED Code(s): 255577927 Comment: - Associated with N/V and dysgeusia. - Upper GI Malignancy and gastroparesis are ruled out. - Most likely cause of patient's weight loss is major depression. - EGD showed Farr's esophagus. Possible but unliekly cause of weight loss. - Gallbladder US and CT abd/pelvis showed pneumobilia but no pain or lab abnormalities - No hx of ERCP but had cholecystectomy (with possible sphincterotomy). - Patient declines inpatient colonoscopy. (2) Depression Current Visit: Yes Status: Acute Code(s): F32.9 - MAJOR DEPRESSIVE DISORDER , SINGLE EPISODE, UNSPECIFIED SNOMED Code(s): 07306076 Comment: - May be contributing to or be the driving force behind her weight loss. - Increase sertraline. (3) Diabetes mellitus Current Visit: Yes Status: Acute Code(s): E11.9 - TYPE 2 DIABETES MELLITUS WITHOUT COMPLICATIONS SNOMED Code(s): 50133613 Comment: - HgbA1c 7.9 - Continue lispro sliding scale. (4) Electrolyte abnormality Current Visit: Yes Status: Acute Code(s): E87.8 - OTH DISORDERS OF ELECTROLYTE AND FLUID BALANCE, NEC SNOMED Code(s): 192478442 Comment: - Continue to replete potassium and magnesium. (5) HTN (hypertension) Current Visit: Yes Status: Acute Code(s): I10 - ESSENTIAL (PRIMARY) HYPERTENSION SNOMED Code(s): 16090939 Comment: - Controlled on lower dose Atenolol. (6) Nausea & vomiting Current Visit: Yes Status: Acute Code(s): R11.2 - NAUSEA WITH VOMITING, UNSPECIFIED SNOMED Code(s): 43496827 Comment: -Work up unremarkable thus far - Appreciate Gi input (7) Normocytic anemia Current Visit: Yes Status: Acute Code(s): D64.9 - ANEMIA, UNSPECIFIED SNOMED Code(s): 372794566 Comment: - Drop in H/H from admission - Not symptomatic - Check hemoccult, B12, Folate normal. - Iron studies show low Transferrin (8) DNR (do not resuscitate) Current Visit: Yes Status: Acute (9) DVT prophylaxis Current Visit: Yes Status: Acute Code(s): KBV7799 - SNOMED Code(s): 702209205 Comment: - SQ Heparin. Status and Disposition: Inpatient to complete work up of N/V and weight loss. Hopeful discharge tomorrow.
[2018-03-06] MEDS: Atorvastatin* 10 MG TAB PO SCH (17:44)
[2018-03-06] MEDS: Ropinirole TAB* 0.5 MG TAB PO SCH (21:53)
[2018-03-07 05:22] LABS: ABS Basophils 0 10^3/ul (0-0.2); ABS Eosinophils 0.3 10^3/ul (0-0.6); ABS Lymphocytes 1.6 10^3/ul (1.0-4.8); ABS Monocytes 0.4 10^3/ul (0-0.8); ABS Neutrophils 4.1 10^3/ul (1.5-7.7); ABS Nucleated RBC 0 10^3/ul; Eosinophil % 5.1 % (0-6); Hematocrit 31 % (35-47); Hemoglobin 10.3 g/dl (12.0-16.0); Lymphocyte % 24.2 % (25-47); Mean Corpuscular HGB Conc 33 g/dl (31-36); Mean Corpuscular Hemoglobin 29 pg (27-31); Mean Corpuscular Volume 88 fL (80-97); Mean Platelet Volume 9.1 um3 (7.4-10.4); Nucleated Red Blood Cells % 0.1; Platelet Count 154 10^3/ul (150-450); Red Blood Count 3.53 10^6/ul (4.00-5.40); Red Cell Distribution Width 15 % (10.5-15); White Blood Count 6.5 10^3/ul (3.5-10.8)
[2018-03-07 05:37] LABS: EGFR Non-African American 56.7 (>60)
[2018-03-07] MEDS: Pantoprazole IV* 40 MG IV SCH (05:45)
[2018-03-07] MEDS: Heparin VIAL(*) 5000 UNITS/ML VIAL (FIVE THOUSAND) SUBCUT SCH ×2 (05:50→14:36)
[2018-03-07] MEDS: Insulin LISPRO* 1 UNITS UNIT SUBCUT SCH ×3 (07:28→17:10)
[2018-03-07] MEDS ORDERED: Sertraline* 100 MG TAB PO SCH (09:00)
[2018-03-07] MEDS: Docusate CAP* 100 MG PO SCH (09:12)
[2018-03-07] MEDS: Nystatin TOP POWDER* 15 GM BTL TOPICAL SCH ×2 (09:12→14:36)
[2018-03-07] MEDS: Potassium Chloride LIQUID* 20 MEQ PACKET PO SCH (09:12)
[2018-03-07] MEDS: Mometasone/Formoter 200/5 MDI INH SCH ×2 (09:17→20:03)
[2018-03-07] MEDS: Oxybutynin XL TAB* 5 MG PO SCH (09:19)
[2018-03-07] MEDS: Atenolol TAB* 25 MG PO SCH (09:19)
[2018-03-07] MEDS: Aspirin 81 mg CHEW TAB* 81 MG TAB.CHEW PO SCH (09:20)
[2018-03-07] MEDS: Magnesium Oxide TAB* 400 MG PO SCH (09:20)
[2018-03-07] MEDS ORDERED: CMC:Pantoprazole TAB (NF) 40 MG TAB PO ONE (17:12)
[2018-03-07] MEDS: Atorvastatin* 10 MG TAB PO SCH (17:14)
[2018-03-07 19:13] VITALS: BP 104/53
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
== END 2018-03-07 19:40 | disposition home health service (06) | DRG 885 ==
LOC: ED 20:33 → MEDTELE 03-01 01:22 → OBSVTOIN 03-03 14:08 → SSU 03-03 15:56
PROVIDERS: ADMIT Hospitalist; ATTEND Internal Medicine
PROC: 0DB58ZX Excision of Esophagus, Via Natural or Artificial Opening Endoscopic, Diagnostic (ICD-10-PCS; principal; 2018-03-04)
PROC: 0DB68ZX Excision of Stomach, Via Natural or Artificial Opening Endoscopic, Diagnostic (ICD-10-PCS; 2018-03-04)
DX: F32.1 Major depressive disorder, single episode, moderate (principal); Z68.43 Body mass index [BMI] 50.0-59.9, adult; R63.4 Abnormal weight loss; E78.5 Hyperlipidemia, unspecified; R06.02 Shortness of breath; E66.01 Morbid (severe) obesity due to excess calories; R11.2 Nausea with vomiting, unspecified; E11.22 Type 2 diabetes mellitus with diabetic chronic kidney disease; I12.9 Hypertensive chronic kidney disease with stage 1 through stage 4 chronic kidney disease, or unspecified chronic kidney disease; E86.0 Dehydration; R13.10 Dysphagia, unspecified; K22.70 Barrett's esophagus without dysplasia; R43.2 Parageusia; K83.8 Other specified diseases of biliary tract; E87.6 Hypokalemia; K20.9 Esophagitis, unspecified; N18.3 Chronic kidney disease, stage 3 (moderate); K29.50 Unspecified chronic gastritis without bleeding; R29.6 Repeated falls; E83.42 Hypomagnesemia; D64.9 Anemia, unspecified; Z66 Do not resuscitate; Z80.0 Family history of malignant neoplasm of digestive organs; Z91.19 Patient's noncompliance with other medical treatment and regimen; Z87.820 Personal history of traumatic brain injury; Z87.891 Personal history of nicotine dependence; Z23 Encounter for immunization; Z90.49 Acquired absence of other specified parts of digestive tract; Z79.84 Long term (current) use of oral hypoglycemic drugs; Z79.82 Long term (current) use of aspirin
CPT/HCPCS: 36415; 71045; 74177; 76705; 78264; 80048; 80053; 82040; 82272; 82378; 82533; 82570; 82607; 82728; 82746; 83036; 83540; 83550; 83735; 84134; 84300; 84443; 85025; 85610; 85730; 86140; 88305; 88342; 90686; 93005; 94640; 99156; 99284; A9270-GY; A9541; G0378; G8978-GP-CI; G8979-GP-CI; G8980-GP-CI; G8987-GO-CI; G8988-GO-CI; G8989-GO-CI; J0610; J1644; J2250; J3010; J3475; J3480; Q9967

== ENCOUNTER → 2018-10-08 12:08 | Emergency (ER) | payer MEDICARE ==
[~2018-10-08 12:08] MED LIST: traMADol TAB* 50 MG PO ONE
[2018-10-08 14:39] LABS: ABS Basophils 0.1 10^3/ul (0-0.2); ABS Eosinophils 0.2 10^3/ul (0-0.6); ABS Lymphocytes 2.1 10^3/ul (1.0-4.8); ABS Monocytes 0.4 10^3/ul (0-0.8); ABS Neutrophils 4.8 10^3/ul (1.5-7.7); ABS Nucleated RBC 0 10^3/ul; Hematocrit 37 % (33-41); Hemoglobin 12.3 g/dL (12.0-16.0); Lymphocyte % 27.8 %; Mean Corpuscular HGB Conc 33 g/dL (31-36); Mean Corpuscular Hemoglobin 28 pg (27-31); Mean Corpuscular Volume 86 fL (80-97); Nucleated Red Blood Cells % 0; Red Blood Count 4.33 10^6 /uL (3.70-4.87); Red Cell Distribution Width 18 % (10.5-15); White Blood Count 7.6 10^3/uL (3.5-10.8)
[2018-10-08 14:58] LABS: INR 1.02 (0.77-1.02)
[2018-10-08 15:06] LABS: Albumin 3.5 g/dL (3.2-5.2); Albumin/Globulin Ratio 1.2 (1-3); BUN/Creatinine Ratio 20.5 (8-20); C Reactive Protein 2.85 mg/L (<8.01); Calcium 8.9 mg/dL (8.6-10.3); EGFR African American 49.5 (>60); EGFR Non-African American 40.9 (>60); Magnesium 1.7 mg/dL (1.9-2.7); Total Bilirubin 0.5 mg/dL (0.2-1.0); Total Protein 6.5 g/dL (6.4-8.9); Troponin I 0.01 ng/mL (<0.04)
[2018-10-08 15:37] LABS: Urine Appearance Cloudy; Urine Bilirubin Negative (Negative); Urine Blood Negative (Negative); Urine Color Yellow; Urine Glucose Negative (Negative); Urine Ketones Negative (Negative); Urine Nitrite Negative (Negative); Urine Protein Negative (Negative); Urine Specific Gravity 1.015 (1.010-1.030); Urine Urobilinogen Negative (Negative)
[2018-10-08 15:48] LABS: Platelet Count Platelets clumped. 10^3/uL (150-450)
[2018-10-08 16:07] VITALS: BP 133/57
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
== END | disposition home or self-care (01) ==
LOC: ED 12:08
DX: R10.9 Unspecified abdominal pain (principal); W19.XXXA Unspecified fall, initial encounter; Y92.9 Unspecified place or not applicable; Z87.891 Personal history of nicotine dependence; E11.9 Type 2 diabetes mellitus without complications; I10 Essential (primary) hypertension
CPT/HCPCS: 36415; 71250; 74176; 80053; 81003; 82550; 83690; 83735; 84484; 85025; 85610; 86140; 99284; A9270-GY

== ENCOUNTER 2021-02-05 10:31 | Inpatient (IN) ==
[2021-02-05] MEDS ORDERED: NS 0.9% 1000 ml BAG 1,000 ML IV ONE ×2 (11:02→13:55)
[2021-02-05 11:08] LABS: Hematocrit 47 % (35-47); Hemoglobin 14.9 g/dL (12.0-16.0); Mean Corpuscular HGB Conc 31 g/dL (31-36); Mean Corpuscular Hemoglobin 28 pg (27-31); Mean Corpuscular Volume 88 fL (80-97); Mean Platelet Volume 8.8 fL (7.4-10.4); Platelet Count 403 10^3/uL (150-450); Red Cell Distribution Width 17 % (10-15); White Blood Count 11.6 10^3/uL (3.5-10.8)
[2021-02-05 11:26] LABS: ALT 17 U/L (7-52); AST 29 U/L (13-39); Albumin 4.4 g/dL (3.2-5.2); Alkaline Phosphatase 115 U/L (35-149); Anion Gap 25 mmol/L (2-11); Blood Urea Nitrogen 41 mg/dL (6-24); C Reactive Protein 20.53 mg/L (<8.01); CO2 Carbon Dioxide 15 mmol/L (22-32); Calcium 9.9 mg/dL (8.6-10.3); Chloride 98 mmol/L (101-111); EGFR Non-African American 22.3 (>60); Globulin 4.2 g/dL (2-4); Glucose 404 mg/dL (70-100); Magnesium 1.8 mg/dL (1.9-2.7); Potassium 3.1 mmol/L (3.5-5.0); Sodium 138 mmol/L (135-145); Total Protein 8.6 g/dL (6.4-8.9)
[2021-02-05 11:28] LABS: PCO2 Arterial 32 mmHg (35-45); PO2 Arterial 73 mmHg (80-100)
[2021-02-05 11:29] LABS: Troponin I 0.03 ng/mL (<0.03)
[2021-02-05 11:47] LABS: TSH Ultra Thyroid Stim Horm 3.05 mcIU/mL (0.34-5.60)
[2021-02-05] MEDS: KCL 20 MEQ/100 ML IVPREMIX 20 MEQ/100 ML BAG IV SCH ×4 (11:51→22:21)
[2021-02-05 12:03] LABS: ABS Lymphocytes 0.9 10^3/ul (1.0-4.8); ABS Monocytes 0.6 10^3/ul (0-0.8); ABS Neutrophils 10.1 10^3/ul (1.5-7.7); Lymphocyte % 7.8 %; Nucleated Red Blood Cells % 0.1
[2021-02-05] MEDS ORDERED: Piperacillin/Tazobac ADVAN 3.375 GM in NS 0.9% 100 ml BAG 100 ML IVPB ONE (12:19)
[2021-02-05] MEDS ORDERED: Succinylcholine 200 mg VIAL 20 mg/ml 10 ml VIAL (200 mg) IV ONE (13:27)
[2021-02-05] MEDS ORDERED: Etomidate 20 mg/10 ml 2 MG/ML 10 ml VIAL IV ONE (13:27)
[2021-02-05] MEDS ORDERED: Sodium Bicarbonate 8.4% SYR 50 ml SYRINGE IV ONE ×3 (13:28→23:55)
[2021-02-05] MEDS ORDERED: Midazolam 2 mg/2 ml VIAL 1 mg/ml 2 ml VIAL (2 mg) IV SLOW PU ONE (13:55)
[2021-02-05] MEDS ORDERED: fentaNYL 100 mcg/2 ml 50 MCG/ML VIAL IV SLOW PU ONE (13:55)
[2021-02-05] MEDS ORDERED: Lactated Ringers 1000 ml BAG 1,000 ML IV ONE ×2 (14:14→18:01)
[2021-02-05] MEDS: Lactated Ringers 1000 ml BAG 1,000 ML IV SCH ×2 (14:50→17:50)
[2021-02-05] MEDS: fentaNYL 100 mcg/2 ml 50 MCG/ML VIAL IV SLOW PU PRN (15:04)
[2021-02-05] MEDS ORDERED: Rocuronium 50 mg VIAL 10 mg/ml 5 ml VIAL (50 mg) ONE (15:05)
[2021-02-05] MEDS ORDERED: fentaNYL 250 mcg/5 ml 50 MCG/ML 5 ml VIAL (250 MCG) ONE (15:05)
[2021-02-05] MEDS ORDERED: Propofol 10 MG/ML 20 ML BTL ONE (15:08)
[2021-02-05] MEDS ORDERED: Piperacillin/Tazobac 3.375 GM BAG ONE (15:14)
[2021-02-05] MEDS ORDERED: LORazepam 2 mg VIAL 1 ml IV PUSH PRN (15:31)
[2021-02-05] MEDS ORDERED: Lorazepam PYXIS KEY PRN (15:31)
[2021-02-05] MEDS ORDERED: Zosyn per Pharmacy NOTE FOLLOW UP SCH (16:00)
[2021-02-05] MEDS ORDERED: Phenylephrine 40 mcg/mL 10mL (400mcg) SYRINGE ONE (16:09)
[2021-02-05] MEDS ORDERED: Dextrose 50% Syringe 50 ml 25 GM/50 ML SYRINGE IV PUSH PRN (16:59)
[2021-02-05] MEDS ORDERED: Propofol 10 mg/ml 100 ML BTL 100 ML ONE (17:29)
[2021-02-05] MEDS ORDERED: Norepinephrine 16MCG/ML IVPRE 4,000 MCG/250 ML BAG IV ONE (17:31)
[2021-02-05] MEDS: Norepinephrine 16MCG/ML IVPRE 4,000 MCG/250 ML BAG IV SCH ×2 (17:37→23:43)
[2021-02-05 18:16] LABS: PCO2 Arterial 46 mmHg (35-45); PO2 Arterial 65 mmHg (80-100)
[2021-02-05 18:17] LABS: Hematocrit 39 % (35-47); Hemoglobin 12.9 g/dL (12.0-16.0); Mean Corpuscular HGB Conc 33 g/dL (31-36); Mean Corpuscular Hemoglobin 29 pg (27-31); Mean Corpuscular Volume 87 fL (80-97); Mean Platelet Volume 8.6 fL (7.4-10.4); Platelet Count 239 10^3/uL (150-450); Red Blood Count 4.53 10^6 /uL (3.70-4.87); Red Cell Distribution Width 17 % (10-15); White Blood Count 1.7 10^3/uL (3.5-10.8)
[2021-02-05 18:40] LABS: ABS Lymphocytes 0.3 10^3/ul (1.0-4.8); ABS Monocytes 0.1 10^3/ul (0-0.8); ABS Neutrophils 1.4 10^3/ul (1.5-7.7); Eosinophil % 0.2 %; Lymphocyte % 16.9 %
[2021-02-05 18:41] LABS: Blood Urea Nitrogen 40 mg/dL (6-24); CO2 Carbon Dioxide 23 mmol/L (22-32); Calcium 7.3 mg/dL (8.6-10.3); Chloride 110 mmol/L (101-111); EGFR African American 28.7 (>60); EGFR Non-African American 23.7 (>60); Glucose 166 mg/dL (70-100); Magnesium 1.2 mg/dL (1.9-2.7); Sodium 140 mmol/L (135-145)
[2021-02-05] MEDS ORDERED: Magnesium Sulf 4 GM/100 ML IV 4,000 MG/100 ML BAG IVPB ONE (18:50)
[2021-02-05 18:56] LABS: Anion Gap 7 mmol/L (2-11); Troponin I 0.08 ng/mL (<0.03)
[2021-02-05] MEDS ORDERED: Propofol 10 mg/ml 100 ML BTL 100 ML IV SCH (19:00)
[2021-02-05] MEDS ORDERED: Filgrastim* 480 MCG VIAL (AUTOSUB = ZARXIO*) SUBCUT ONE (19:41)
[2021-02-05] MEDS: Pantoprazole VIAL 40 MG VIAL IV SCH (20:39)
[2021-02-05] MEDS: Chlorhexidine MOUTHWASH 0.12% 15 ML UDC TOPICAL SCH (20:40)
[2021-02-05] MEDS: Hydrocortisone INJ 100 MG/2ML 2 ML VIAL IV SCH (20:40)
[2021-02-05] MEDS: ZOSYN 3.375 GM Q8H per EXTENDED INFUSION IV SCH (20:47)
[2021-02-05] MEDS ORDERED: cefTRIAXone 2 GM ADDV.VIAL 2 GM in NS 0.9% 100 ml BAG 100 ML IV SCH (23:00)
[2021-02-05 23:04] LABS: Fibrinogen 410.7 mg/dL (110.8-404.3); INR 1.22 (0.86-1.15)
[2021-02-05 23:07] LABS: CO2 Carbon Dioxide 16 mmol/L (22-32); Calcium 7.8 mg/dL (8.6-10.3); Chloride 110 mmol/L (101-111); Sodium 143 mmol/L (135-145)
[2021-02-05 23:08] LABS: Anion Gap 17 mmol/L (2-11)
[2021-02-05 23:13] LABS: Blood Urea Nitrogen 45 mg/dL (6-24); EGFR African American 27.9 (>60); Glucose 172 mg/dL (70-100)
[2021-02-05] MEDS: Acetaminophen IV 1 GM/100ML 100 ML IV SCH (23:29)
[2021-02-05 23:44] LABS: Venous Bicarbonate HCO3 15.2 mmol/L (24-28)
[2021-02-05 23:52] LABS: ABS Eosinophils 0.1 10^3/ul (0-0.6); ABS Lymphocytes 0.5 10^3/ul (1.0-4.8); ABS Monocytes 0.2 10^3/ul (0-0.8); ABS Neutrophils 2.8 10^3/ul (1.5-7.7); Eosinophil % 3.1 %; Hematocrit 42 % (35-47); Hemoglobin 13.3 g/dL (12.0-16.0); Mean Corpuscular HGB Conc 32 g/dL (31-36); Mean Corpuscular Hemoglobin 28 pg (27-31); Mean Corpuscular Volume 88 fL (80-97); Nucleated Red Blood Cells % 0.4; Platelet Count 253 10^3/uL (150-450); Red Blood Count 4.72 10^6 /uL (3.70-4.87); Red Cell Distribution Width 17 % (10-15); White Blood Count 3.6 10^3/uL (3.5-10.8)
[2021-02-05] MEDS: Midazolam 50 MG VIAL IV DRIP 50 ML IV SCH (23:53)
[2021-02-05 23:58] LABS: Potassium Redraw 3.4 mmol/L (3.5-5.0)
[2021-02-06] MEDS: Chlorhexidine MOUTHWASH 0.12% 15 ML UDC TOPICAL SCH ×7 (00:01→23:08)
[2021-02-06] MEDS: KCL 20 MEQ/100 ML IVPREMIX 20 MEQ/100 ML BAG IV SCH (00:10)
[2021-02-06] MEDS: Norepinephrine 16MCG/ML IVPRE 4,000 MCG/250 ML BAG IV SCH ×3 (04:17→21:01)
[2021-02-06] MEDS: Hydrocortisone INJ 100 MG/2ML 2 ML VIAL IV SCH ×3 (04:21→19:42)
[2021-02-06] MEDS: ZOSYN 3.375 GM Q8H per EXTENDED INFUSION IV SCH (04:21)
[2021-02-06] MEDS: Acetaminophen IV 1 GM/100ML 100 ML IV SCH ×3 (05:33→20:04)
[2021-02-06 05:34] LABS: ABS Lymphocytes 0.6 10^3/ul (1.0-4.8); ABS Monocytes 0.3 10^3/ul (0-0.8); ABS Neutrophils 4.3 10^3/ul (1.5-7.7); Eosinophil % 0.3 %; Hematocrit 39 % (35-47); Hemoglobin 12.7 g/dL (12.0-16.0); Lymphocyte % 11.1 %; Mean Corpuscular HGB Conc 33 g/dL (31-36); Mean Corpuscular Hemoglobin 28 pg (27-31); Mean Corpuscular Volume 85 fL (80-97); Mean Platelet Volume 9.1 fL (7.4-10.4); Nucleated Red Blood Cells % 0.1; Platelet Count 258 10^3/uL (150-450); Red Blood Count 4.55 10^6 /uL (3.70-4.87); Red Cell Distribution Width 17 % (10-15); White Blood Count 5.2 10^3/uL (3.5-10.8)
[2021-02-06 06:05] LABS: ALT 28 U/L (7-52); AST 50 U/L (13-39); Albumin 2.8 g/dL (3.2-5.2); Alkaline Phosphatase 51 U/L (35-149); Blood Urea Nitrogen 47 mg/dL (6-24); CO2 Carbon Dioxide 24 mmol/L (22-32); Calcium 7.8 mg/dL (8.6-10.3); Chloride 107 mmol/L (101-111); EGFR African American 23.5 (>60); EGFR Non-African American 19.4 (>60); Globulin 2.8 g/dL (2-4); Glucose 143 mg/dL (70-100); Magnesium 2.7 mg/dL (1.9-2.7); Phosphorus 2.8 mg/dL (2.5-5.0); Potassium 3.7 mmol/L (3.5-5.0); Total Protein 5.6 g/dL (6.4-8.9)
[2021-02-06 06:12] LABS: PCO2 Arterial 32 mmHg (35-45); PO2 Arterial 145 mmHg (80-100)
[2021-02-06 06:24] LABS: Anion Gap 15 mmol/L (2-11); Sodium 146 mmol/L (135-145)
[2021-02-06 06:25] LABS: Troponin I 0.11 ng/mL (<0.03)
[2021-02-06] MEDS ORDERED: Vancomycin per Pharmacy 1 EA NOTE FOLLOW UP PRN (07:53)
[2021-02-06] MEDS ORDERED: Vancomycin 1,250 MG in NS 0.9% 250 ml 250 ML IVPB ONE (08:00)
[2021-02-06] MEDS ORDERED: NORMOSOL-R pH 7.4 1000 mL BAG 1,000 ML IV SCH (08:00)
[2021-02-06] MEDS ORDERED: NS 0.9% 250 ml 250 ML ONE (08:10)
[2021-02-06] MEDS ORDERED: NS 0.9% 50 ML 50 ML ONE (08:10)
[2021-02-06] MEDS: Pantoprazole VIAL 40 MG VIAL IV SCH (08:12)
[2021-02-06] MEDS: metroNIDAZOLE IV 500 MG/100ML 100 ML IVPB SCH ×2 (08:13→16:37)
[2021-02-06] MEDS: NS 0.9% IVPB SCH ×2 (08:48→19:42)
[2021-02-06] MEDS: CEFEPIME ADVAN IVPB SCH ×2 (08:48→19:42)
[2021-02-06 11:22] LABS: Troponin I 0.12 ng/mL (<0.03)
[2021-02-06 12:14] LABS: Urine Appearance Cloudy; Urine Bilirubin Negative (Negative); Urine Blood 1+ (Negative); Urine Color Yellow; Urine Glucose Negative (Negative); Urine Ketones Negative (Negative); Urine Nitrite Negative (Negative); Urine Protein 1+(30 mg/dL) (Negative); Urine Specific Gravity 1.025 (1.002-1.030); Urine Urobilinogen Negative (Negative)
[2021-02-06 12:27] LABS: Urine Bacteria 1+ (Absent); Urine Red Blood Cell 3+(>10/hpf) (Absent); Urine Squamous Epithelial Cell Present (Absent); Urine Transitional Epithelial Present (Absent); Urine White Blood Cell 2+(11-20/hpf) (Absent)
[2021-02-06] MEDS: Midazolam 50 MG VIAL IV DRIP 50 ML IV SCH (15:41)
[2021-02-06] MEDS: fentaNYL 100 mcg/2 ml 50 MCG/ML VIAL IV SLOW PU PRN ×2 (17:25→19:30)
[2021-02-07] MEDS: metroNIDAZOLE IV 500 MG/100ML 100 ML IVPB SCH ×3 (01:26→16:43)
[2021-02-07] MEDS: Hydrocortisone INJ 100 MG/2ML 2 ML VIAL IV SCH ×3 (04:21→23:43)
[2021-02-07] MEDS: Chlorhexidine MOUTHWASH 0.12% 15 ML UDC TOPICAL SCH ×6 (04:21→23:43)
[2021-02-07 05:31] LABS: Hematocrit 33 % (35-47); Hemoglobin 10.8 g/dL (12.0-16.0); Mean Corpuscular HGB Conc 33 g/dL (31-36); Mean Corpuscular Hemoglobin 28 pg (27-31); Mean Corpuscular Volume 85 fL (80-97); Mean Platelet Volume 9.4 fL (7.4-10.4); Platelet Count 170 10^3/uL (150-450); Red Blood Count 3.85 10^6 /uL (3.70-4.87); Red Cell Distribution Width 17 % (10-15); White Blood Count 10.1 10^3/uL (3.5-10.8)
[2021-02-07] MEDS: Acetaminophen IV 1 GM/100ML 100 ML IV SCH ×3 (05:31→21:50)
[2021-02-07 05:52] LABS: Calcium 7.5 mg/dL (8.6-10.3); EGFR Non-African American 19.8 (>60); Magnesium 2.6 mg/dL (1.9-2.7); Phosphorus 5.4 mg/dL (2.5-5.0); Potassium 3.6 mmol/L (3.5-5.0)
[2021-02-07] MEDS ORDERED: Vancomycin Random Level NOTE FOLLOW UP ONE (06:00)
[2021-02-07 06:21] LABS: Vancomycin Random 9.9 mcg/mL
[2021-02-07] MEDS: Cefepime 1 GM in NS 0.9% 50 ML 50 ML IVPB SCH ×2 (08:15→19:47)
[2021-02-07] MEDS: Pantoprazole VIAL 40 MG VIAL IV SCH (08:15)
[2021-02-07] MEDS: Vancomycin 1,250 MG in NS 0.9% 250 ml 250 ML IVPB SCH (10:21)
[2021-02-07] MEDS: Heparin 5000 UNITS/ML 1 mL VIAL SUBCUT SCH ×2 (14:33→21:50)
[2021-02-07] MEDS ORDERED: LORazepam 2 mg VIAL 1 ml IV PUSH PRN (15:24)
[2021-02-07] MEDS ORDERED: NORMOSOL-R pH 7.4 1000 mL BAG 1,000 ML IV SCH (16:37)
[2021-02-07] MEDS: fentaNYL 100 mcg/2 ml 50 MCG/ML VIAL IV SLOW PU PRN ×2 (19:20→23:50)
[2021-02-07] MEDS ORDERED: Hydrocortisone INJ 100 MG/2ML 2 ML VIAL IV SCH (20:00)
[2021-02-08] MEDS: metroNIDAZOLE IV 500 MG/100ML 100 ML IVPB SCH ×3 (03:01→17:28)
[2021-02-08] MEDS: Chlorhexidine MOUTHWASH 0.12% 15 ML UDC TOPICAL SCH ×3 (03:06→15:23)
[2021-02-08 05:27] LABS: INR 1.75 (0.86-1.15)
[2021-02-08 05:37] LABS: Blood Urea Nitrogen 60 mg/dL (6-24); CO2 Carbon Dioxide 24 mmol/L (22-32); Calcium 7.4 mg/dL (8.6-10.3); EGFR African American 37.7 (>60); EGFR Non-African American 31.2 (>60); Glucose 74 mg/dL (70-100); Phosphorus 4.1 mg/dL (2.5-5.0)
[2021-02-08 05:39] LABS: Chloride 113 mmol/L (101-111); Sodium 147 mmol/L (135-145)
[2021-02-08 05:40] LABS: Anion Gap 10 mmol/L (2-11)
[2021-02-08] MEDS: Heparin 5000 UNITS/ML 1 mL VIAL SUBCUT SCH ×3 (05:42→22:44)
[2021-02-08] MEDS: Acetaminophen IV 1 GM/100ML 100 ML IV SCH ×3 (05:42→22:44)
[2021-02-08 06:26] LABS: Magnesium 2.6 mg/dL (1.9-2.7)
[2021-02-08] MEDS: Pantoprazole VIAL 40 MG VIAL IV SCH (07:52)
[2021-02-08] MEDS: Cefepime 1 GM in NS 0.9% 50 ML 50 ML IVPB SCH ×2 (08:01→19:42)
[2021-02-08] MEDS: Vancomycin 1,250 MG in NS 0.9% 250 ml 250 ML IVPB SCH (10:42)
[2021-02-08 11:34] LABS: Hematocrit 28 % (35-47); Hemoglobin 9.2 g/dL (12.0-16.0); Mean Corpuscular HGB Conc 33 g/dL (31-36); Mean Corpuscular Hemoglobin 28 pg (27-31); Mean Corpuscular Volume 85 fL (80-97); Mean Platelet Volume 9.4 fL (7.4-10.4); Platelet Count 135 10^3/uL (150-450); Red Blood Count 3.25 10^6 /uL (3.70-4.87); Red Cell Distribution Width 17 % (10-15)
[2021-02-08] MEDS: Hydrocortisone INJ 100 MG/2ML 2 ML VIAL IV SCH (13:38)
[2021-02-08] MEDS: KCL 20 MEQ/100 ML IVPREMIX 20 MEQ/100 ML BAG IV SCH ×2 (13:42→15:38)
[2021-02-08] MEDS ORDERED: D5W 1/2 NS KCl 20 meq 1000 ml 1,000 ML IV SCH (14:00)
[2021-02-08] MEDS ORDERED: fentaNYL 100 mcg/2 ml 50 MCG/ML VIAL IV SLOW PU PRN (18:23)
[2021-02-09] MEDS: metroNIDAZOLE IV 500 MG/100ML 100 ML IVPB SCH ×4 (01:26→23:29)
[2021-02-09 05:52] LABS: Hematocrit 27 % (35-47); Hemoglobin 8.5 g/dL (12.0-16.0); Mean Corpuscular HGB Conc 32 g/dL (31-36); Mean Corpuscular Hemoglobin 27 pg (27-31); Mean Corpuscular Volume 86 fL (80-97); Mean Platelet Volume 9.2 fL (7.4-10.4); Platelet Count 132 10^3/uL (150-450); Red Cell Distribution Width 18 % (10-15); White Blood Count 13.7 10^3/uL (3.5-10.8)
[2021-02-09] MEDS: Acetaminophen IV 1 GM/100ML 100 ML IV SCH ×2 (05:57→18:48)
[2021-02-09] MEDS: Heparin 5000 UNITS/ML 1 mL VIAL SUBCUT SCH ×3 (05:58→22:43)
[2021-02-09 06:01] LABS: INR 1.5 (0.86-1.15)
[2021-02-09 06:10] LABS: Calcium 7.8 mg/dL (8.6-10.3); EGFR African American 49.2 (>60); EGFR Non-African American 40.7 (>60); Potassium 3.1 mmol/L (3.5-5.0)
[2021-02-09] MEDS: Cefepime 1 GM in NS 0.9% 50 ML 50 ML IVPB SCH ×2 (07:57→22:43)
[2021-02-09 08:38] LABS: Magnesium 2.3 mg/dL (1.9-2.7); Phosphorus 2.3 mg/dL (2.5-5.0)
[2021-02-09] MEDS ORDERED: Potassium Phosphate IV 15 MMOLE in NS 0.9% 250 ml 250 ML IVPB ONE (09:30)
[2021-02-09] MEDS: KCL 20 MEQ/100 ML IVPREMIX 20 MEQ/100 ML BAG IV SCH ×3 (09:32→14:44)
[2021-02-09] MEDS: Pantoprazole VIAL 40 MG VIAL IV SCH (09:34)
[2021-02-09] MEDS ORDERED: Vancomycin Trough Check NOTE FOLLOW UP ONE (10:00)
[2021-02-09] MEDS: Vancomycin 1,250 MG in NS 0.9% 250 ml 250 ML IVPB SCH (10:49)
[2021-02-09] MEDS ORDERED: Hydrocortisone INJ 100 MG/2ML 2 ML VIAL IV SCH (13:00)
[2021-02-09] MEDS ORDERED: D5W KCl 40 MEQ 1000 ml 1,000 ML IV SCH (14:00)
[2021-02-09] MEDS ORDERED: Acetaminophen IV 1 GM/100ML 100 ML IV PRN (14:47)
[2021-02-09] MEDS: D5W 20 MEQ KCL 1000 ml BAG 1,000 ML IV SCH (17:24)
[2021-02-10 06:04] LABS: Hematocrit 28 % (35-47); Hemoglobin 9.2 g/dL (12.0-16.0); Mean Corpuscular HGB Conc 33 g/dL (31-36); Mean Corpuscular Hemoglobin 28 pg (27-31); Mean Corpuscular Volume 86 fL (80-97); Mean Platelet Volume 9.3 fL (7.4-10.4); Platelet Count 133 10^3/uL (150-450); Red Blood Count 3.24 10^6 /uL (3.70-4.87); Red Cell Distribution Width 18 % (10-15); White Blood Count 9.8 10^3/uL (3.5-10.8)
[2021-02-10 06:30] LABS: Calcium 7.6 mg/dL (8.6-10.3); Potassium 3.9 mmol/L (3.5-5.0)
[2021-02-10 06:36] LABS: EGFR African American 63.4 (>60); EGFR Non-African American 52.4 (>60); Phosphorus 2.2 mg/dL (2.5-5.0)
[2021-02-10] MEDS: Heparin 5000 UNITS/ML 1 mL VIAL SUBCUT SCH ×3 (06:58→20:51)
[2021-02-10] MEDS: Cefepime 1 GM in NS 0.9% 50 ML 50 ML IVPB SCH ×2 (07:56→20:51)
[2021-02-10 08:20] LABS: Anisocytosis 1+
[2021-02-10 08:22] LABS: ABS Lymphocytes 1.6 10^3/ul (1.0-4.8); ABS Monocytes 0.6 10^3/ul (0-0.8); ABS Neutrophils 7.6 10^3/ul (1.5-7.7); Eosinophil % 0.4 %; Lymphocyte % 16.1 %
[2021-02-10] MEDS: metroNIDAZOLE IV 500 MG/100ML 100 ML IVPB SCH ×2 (08:45→16:55)
[2021-02-10] MEDS: D5W 20 MEQ KCL 1000 ml BAG 1,000 ML IV SCH (12:27)
[2021-02-10] MEDS ORDERED: fentaNYL 100 mcg/2 ml 50 MCG/ML VIAL IV SLOW PU PRN (17:39)
[2021-02-11] MEDS: metroNIDAZOLE IV 500 MG/100ML 100 ML IVPB SCH ×2 (00:44→09:32)
[2021-02-11] MEDS: Heparin 5000 UNITS/ML 1 mL VIAL SUBCUT SCH ×3 (06:04→22:16)
[2021-02-11] MEDS: Cefepime 1 GM in NS 0.9% 50 ML 50 ML IVPB SCH (07:32)
[2021-02-11] MEDS ORDERED: Furosemide 40 mg/4 ml IV VIAL IV SLOW PU ONE (11:46)
[2021-02-12] MEDS: Heparin 5000 UNITS/ML 1 mL VIAL SUBCUT SCH (05:59)
[2021-02-12 06:06] LABS: Hematocrit 28 % (35-47); Hemoglobin 9.2 g/dL (12.0-16.0); Mean Corpuscular HGB Conc 33 g/dL (31-36); Mean Corpuscular Hemoglobin 28 pg (27-31); Mean Corpuscular Volume 85 fL (80-97); Platelet Count 161 10^3/uL (150-450); Red Blood Count 3.34 10^6 /uL (3.70-4.87); Red Cell Distribution Width 17 % (10-15); White Blood Count 11.1 10^3/uL (3.5-10.8)
[2021-02-12 06:21] LABS: Calcium 8.1 mg/dL (8.6-10.3); EGFR African American 86.4 (>60); EGFR Non-African American 71.4 (>60); Magnesium 1.3 mg/dL (1.9-2.7); Phosphorus 3.9 mg/dL (2.5-5.0); Potassium 3.7 mmol/L (3.5-5.0)
[2021-02-12 06:38] LABS: ABS Eosinophils 0.2 10^3/ul (0-0.6); ABS Monocytes 0.7 10^3/ul (0-0.8); ABS Neutrophils 8.3 10^3/ul (1.5-7.7); Eosinophil % 1.5 %
[2021-02-12] MEDS ORDERED: Magnesium Sulf 4 GM/100 ML IV 4,000 MG/100 ML BAG IVPB ONE (08:28)
[2021-02-12] MEDS: Enoxaparin 40 MG/0.4 ML SYR SUBCUT SCH (09:00)
[2021-02-13 07:19] LABS: Hematocrit 28 % (35-47); Hemoglobin 9.4 g/dL (12.0-16.0); Mean Corpuscular HGB Conc 34 g/dL (31-36); Mean Corpuscular Hemoglobin 28 pg (27-31); Mean Corpuscular Volume 84 fL (80-97); Mean Platelet Volume 8.8 fL (7.4-10.4); Platelet Count 203 10^3/uL (150-450); Red Blood Count 3.33 10^6 /uL (3.70-4.87); Red Cell Distribution Width 17 % (10-15); White Blood Count 12.4 10^3/uL (3.5-10.8)
[2021-02-13 07:33] LABS: EGFR African American 89.1 (>60); EGFR Non-African American 73.6 (>60); Magnesium 1.7 mg/dL (1.9-2.7); Potassium 3.9 mmol/L (3.5-5.0)
[2021-02-13 08:04] LABS: ABS Basophils 0.1 10^3/ul (0-0.2); ABS Eosinophils 0.3 10^3/ul (0-0.6); ABS Monocytes 0.6 10^3/ul (0-0.8); ABS Neutrophils 9.4 10^3/ul (1.5-7.7); Eosinophil % 2.1 %; Lymphocyte % 16.2 %
[2021-02-13] MEDS: Enoxaparin 40 MG/0.4 ML SYR SUBCUT SCH (08:07)
[2021-02-13] MEDS ORDERED: Magnesium Sulfate 2 gm BAG 2 GM/50 ML BAG IVPB ONE (08:25)
[2021-02-14 07:03] LABS: Hematocrit 28 % (35-47); Hemoglobin 9.5 g/dL (12.0-16.0); Mean Corpuscular HGB Conc 34 g/dL (31-36); Mean Corpuscular Hemoglobin 28 pg (27-31); Mean Corpuscular Volume 84 fL (80-97); Mean Platelet Volume 8.9 fL (7.4-10.4); Platelet Count 241 10^3/uL (150-450); Red Blood Count 3.36 10^6 /uL (3.70-4.87); Red Cell Distribution Width 17 % (10-15); White Blood Count 10.4 10^3/uL (3.5-10.8)
[2021-02-14 07:19] LABS: Potassium 4.2 mmol/L (3.5-5.0)
[2021-02-14 07:20] LABS: Calcium 8.2 mg/dL (8.6-10.3); EGFR African American 82.7 (>60); EGFR Non-African American 68.4 (>60); Magnesium 1.7 mg/dL (1.9-2.7)
[2021-02-14 08:04] LABS: ABS Basophils 0.1 10^3/ul (0-0.2); ABS Eosinophils 0.3 10^3/ul (0-0.6); ABS Lymphocytes 1.7 10^3/ul (1.0-4.8); ABS Monocytes 0.4 10^3/ul (0-0.8); ABS Neutrophils 7.9 10^3/ul (1.5-7.7); Eosinophil % 2.5 %; Lymphocyte % 16.3 %
[2021-02-14] MEDS ORDERED: Magnesium Sulfate 2 gm BAG 2 GM/50 ML BAG IVPB ONE (08:05)
[2021-02-14] MEDS: Enoxaparin 40 MG/0.4 ML SYR SUBCUT SCH (09:42)
[2021-02-15] MEDS: Enoxaparin 40 MG/0.4 ML SYR SUBCUT SCH (08:29)
[2021-02-15 12:21] VITALS: BP 116/88
== END 2021-02-15 14:40 | DRG 853 ==
LOC: ED 10:31 → ICU 14:15 → SUATTDRO 14:15 → ICU 15:36 → SSU 02-09 18:32
PROVIDERS: ADMIT Internal Medicine; ATTEND Hospitalist

== ENCOUNTER 2021-05-05 13:20 | Inpatient (IN) ==
[2021-05-05] MEDS ORDERED: NS 0.9% 500 ml BAG 500 ML IV ONE (15:36)
[2021-05-05] MEDS ORDERED: Ondansetron 4 mg VIAL 2 MG/ML 2 ml VIAL IV ONE (15:36)
[2021-05-05 17:08] LABS: ABS Eosinophils 0.2 10^3/ul (0-0.6); ABS Lymphocytes 1.6 10^3/ul (1.0-4.8); ABS Monocytes 0.4 10^3/ul (0-0.8); ABS Neutrophils 6.4 10^3/ul (1.5-7.7); Eosinophil % 2.5 %; Hematocrit 38 % (35-47); Hemoglobin 12.4 g/dL (12.0-16.0); Lymphocyte % 18.6 %; Mean Corpuscular HGB Conc 33 g/dL (31-36); Mean Corpuscular Hemoglobin 26 pg (27-31); Mean Corpuscular Volume 81 fL (80-97); Mean Platelet Volume 8.4 fL (7.4-10.4); Platelet Count 287 10^3/uL (150-450); Red Blood Count 4.75 10^6 /uL (3.70-4.87); Red Cell Distribution Width 18 % (10-15); White Blood Count 8.7 10^3/uL (3.5-10.8)
[2021-05-05 17:20] LABS: Albumin/Globulin Ratio 0.9 (1-3); C Reactive Protein 31.72 mg/L (<8.01); Calcium 10.2 mg/dL (8.6-10.3); Globulin 4.6 g/dL (2-4); Total Bilirubin 0.5 mg/dL (0.2-1.0); Total Protein 8.6 g/dL (6.4-8.9)
[2021-05-05] MEDS ORDERED: Iodixanol (CONTRAST) 320 MG/ML 100 ML SDV IV ONE (17:52)
[2021-05-05] MEDS ORDERED: Midazolam 10 mg/10 ml VIAL 1 mg/ml 10 ml VIAL (10 mg) ONE (18:37)
[2021-05-05] MEDS ORDERED: fentaNYL 100 mcg/2 ml 50 MCG/ML VIAL ONE (18:38)
[2021-05-05] MEDS: NS 0.9% 1000 ml BAG 1,000 ML IV SCH (20:30)
[2021-05-06] MEDS ORDERED: Dextrose 50% Syringe 50 ml 25 GM/50 ML SYRINGE IV PUSH PRN (01:23)
[2021-05-06 01:50] LABS: Urine Appearance Cloudy; Urine Bilirubin Negative (Negative); Urine Blood 1+ (Negative); Urine Color Yellow; Urine Glucose Negative (Negative); Urine Ketones Negative (Negative); Urine Nitrite Negative (Negative); Urine Protein Negative (Negative); Urine Specific Gravity 1.015 (1.002-1.030); Urine Urobilinogen Negative (Negative)
[2021-05-06 02:03] LABS: Magnesium 1.7 mg/dL (1.9-2.7)
[2021-05-06 02:11] LABS: Urine Bacteria 1+ (Absent); Urine Red Blood Cell Trace(0-2/hpf) (Absent); Urine Squamous Epithelial Cell Present (Absent); Urine White Blood Cell 3+(>20/hpf) (Absent)
[2021-05-06 02:14] LABS: Rapid COVID-19 Molecular Undetected (Undetected)
[2021-05-06] MEDS: NS 0.9% 1000 ml BAG 1,000 ML IV SCH ×3 (04:21→22:13)
[2021-05-06] MEDS ORDERED: Magnesium Sulfate 2 gm BAG 2 GM/50 ML BAG IVPB ONE (04:24)
[2021-05-06] MEDS: cefTRIAXone 1 gm/50 mL NS BAG 1 GM/50 ML BAG IVPB SCH (05:43)
[2021-05-06] MEDS: Enoxaparin 30 MG/0.3 ML SYR SUBCUT SCH (07:27)
[2021-05-06 07:33] LABS: ABS Eosinophils 0.1 10^3/ul (0-0.6); ABS Lymphocytes 1.2 10^3/ul (1.0-4.8); ABS Monocytes 0.5 10^3/ul (0-0.8); ABS Neutrophils 9.1 10^3/ul (1.5-7.7); Eosinophil % 0.6 %; Hematocrit 31 % (35-47); Lymphocyte % 11.1 %; Mean Corpuscular HGB Conc 33 g/dL (31-36); Mean Corpuscular Hemoglobin 26 pg (27-31); Mean Corpuscular Volume 81 fL (80-97); Mean Platelet Volume 8.5 fL (7.4-10.4); Platelet Count 204 10^3/uL (150-450); Red Blood Count 3.81 10^6 /uL (3.70-4.87); Red Cell Distribution Width 18 % (10-15); White Blood Count 10.9 10^3/uL (3.5-10.8)
[2021-05-06 07:45] LABS: Potassium 3.6 mmol/L (3.5-5.0)
[2021-05-07] MEDS: cefTRIAXone 1 gm/50 mL NS BAG 1 GM/50 ML BAG IVPB SCH (05:39)
[2021-05-07 06:57] LABS: Calcium 8.4 mg/dL (8.6-10.3); Magnesium 1.6 mg/dL (1.9-2.7); Potassium 3.5 mmol/L (3.5-5.0)
[2021-05-07 07:05] LABS: Hematocrit 27 % (35-47); Hemoglobin 8.8 g/dL (12.0-16.0); Mean Corpuscular HGB Conc 32 g/dL (31-36); Mean Corpuscular Hemoglobin 26 pg (27-31); Mean Corpuscular Volume 81 fL (80-97); Mean Platelet Volume 8.7 fL (7.4-10.4); Platelet Count 188 10^3/uL (150-450); Red Blood Count 3.37 10^6 /uL (3.70-4.87); Red Cell Distribution Width 18 % (10-15); White Blood Count 6.9 10^3/uL (3.5-10.8)
[2021-05-07] MEDS ORDERED: Magnesium Sulf 4 GM/100 ML IV 4,000 MG/100 ML BAG IVPB ONE (08:00)
[2021-05-07] MEDS ORDERED: CALCIUM GLUCONATE 1GM/50ML NS 1 GM/50 ML BAG IV ONE (08:00)
[2021-05-07] MEDS: Lactated Ringers 1000 ml BAG 1,000 ML IV SCH (08:22)
[2021-05-07] MEDS: Potassium Chlor 20 meq TAB.ER PO SCH (08:26)
[2021-05-07] MEDS: Enoxaparin 30 MG/0.3 ML SYR SUBCUT SCH (08:30)
[2021-05-07] MEDS: Polyethylene Glycol 3350 17 GM PACKET PO SCH (13:12)
[2021-05-07] MEDS: Senna TAB 8.6 mg TAB PO SCH (20:22)
[2021-05-08] MEDS: Lactated Ringers 1000 ml BAG 1,000 ML IV SCH (01:41)
[2021-05-08] MEDS: cefTRIAXone 1 gm/50 mL NS BAG 1 GM/50 ML BAG IVPB SCH (05:00)
[2021-05-08] MEDS ORDERED: PAIN RELIEVING RUB (MENTHOL/SALICYLATE) 1 APPLIC TUBE TOPICAL PRN (06:16)
[2021-05-08 06:27] LABS: Hematocrit 28 % (35-47); Hemoglobin 9.2 g/dL (12.0-16.0); Mean Corpuscular HGB Conc 33 g/dL (31-36); Mean Corpuscular Hemoglobin 26 pg (27-31); Mean Corpuscular Volume 81 fL (80-97); Mean Platelet Volume 8.1 fL (7.4-10.4); Platelet Count 184 10^3/uL (150-450); Red Cell Distribution Width 18 % (10-15); White Blood Count 7.8 10^3/uL (3.5-10.8)
[2021-05-08] MEDS: Lidocaine PATCH 5% PATCH TRANSDERM PRN (06:28)
[2021-05-08 06:48] LABS: Calcium 8.5 mg/dL (8.6-10.3); Phosphorus 2.9 mg/dL (2.5-5.0); Potassium 3.7 mmol/L (3.5-5.0)
[2021-05-08] MEDS: Potassium Chlor 20 meq TAB.ER PO SCH (08:29)
[2021-05-08] MEDS: Polyethylene Glycol 3350 17 GM PACKET PO SCH (08:31)
[2021-05-08] MEDS: Enoxaparin 30 MG/0.3 ML SYR SUBCUT SCH (08:32)
[2021-05-08] MEDS: Senna TAB 8.6 mg TAB PO SCH (20:46)
[2021-05-08] MEDS ORDERED: Lidocaine Patch REMOVE NOTE PATCH OFF PRN (21:00)
[2021-05-09] MEDS: cefTRIAXone 1 gm/50 mL NS BAG 1 GM/50 ML BAG IVPB SCH (04:54)
[2021-05-09] MEDS: Lidocaine PATCH 5% PATCH TRANSDERM PRN (05:09)
[2021-05-09 06:56] LABS: Hematocrit 28 % (35-47); Mean Corpuscular HGB Conc 33 g/dL (31-36); Mean Corpuscular Hemoglobin 26 pg (27-31); Mean Corpuscular Volume 81 fL (80-97); Mean Platelet Volume 8.3 fL (7.4-10.4); Platelet Count 184 10^3/uL (150-450); Red Blood Count 3.42 10^6 /uL (3.70-4.87); Red Cell Distribution Width 18 % (10-15); White Blood Count 6.8 10^3/uL (3.5-10.8)
[2021-05-09 07:10] LABS: Calcium 8.4 mg/dL (8.6-10.3); Magnesium 1.6 mg/dL (1.9-2.7); Potassium 4.2 mmol/L (3.5-5.0)
[2021-05-09] MEDS ORDERED: Magnesium Sulf 4 GM/100 ML IV 4,000 MG/100 ML BAG IVPB ONE (07:54)
[2021-05-09] MEDS: Enoxaparin 30 MG/0.3 ML SYR SUBCUT SCH (08:46)
[2021-05-09] MEDS: Polyethylene Glycol 3350 17 GM PACKET PO SCH (08:46)
[2021-05-09] MEDS: Potassium Chlor 20 meq TAB.ER PO SCH (08:48)
[2021-05-09] MEDS ORDERED: Lidocaine 1% MPF 5 ML VIAL ONE (14:59)
[2021-05-09] MEDS ORDERED: methylPREDNISolone ACETATE 40 mg/ml 1 ml VIAL **not IV ONE (14:59)
[2021-05-09] MEDS: Senna TAB 8.6 mg TAB PO SCH (21:09)
[2021-05-10] MEDS: cefTRIAXone 1 gm/50 mL NS BAG 1 GM/50 ML BAG IVPB SCH (05:20)
[2021-05-10 06:59] LABS: ABS Lymphocytes 1.3 10^3/ul (1.0-4.8); ABS Monocytes 0.2 10^3/ul (0-0.8); ABS Neutrophils 4.8 10^3/ul (1.5-7.7); Eosinophil % 0.1 %; Hematocrit 32 % (35-47); Hemoglobin 10.5 g/dL (12.0-16.0); Mean Corpuscular HGB Conc 33 g/dL (31-36); Mean Corpuscular Hemoglobin 26 pg (27-31); Mean Corpuscular Volume 81 fL (80-97); Mean Platelet Volume 8.7 fL (7.4-10.4); Nucleated Red Blood Cells % 0.1; Platelet Count 218 10^3/uL (150-450); Red Blood Count 3.99 10^6 /uL (3.70-4.87); Red Cell Distribution Width 18 % (10-15); White Blood Count 6.4 10^3/uL (3.5-10.8)
[2021-05-10 07:15] LABS: Calcium 9.2 mg/dL (8.6-10.3); Magnesium 1.8 mg/dL (1.9-2.7)
[2021-05-10] MEDS ORDERED: Magnesium Sulfate 2 gm BAG 2 GM/50 ML BAG IVPB ONE (07:17)
[2021-05-10] MEDS: Potassium Chlor 20 meq TAB.ER PO SCH (09:25)
[2021-05-10] MEDS: Polyethylene Glycol 3350 17 GM PACKET PO SCH ×2 (09:26→09:29)
[2021-05-10] MEDS: Enoxaparin 30 MG/0.3 ML SYR SUBCUT SCH (09:26)
[2021-05-10] MEDS: Senna TAB 8.6 mg TAB PO SCH (22:37)
[2021-05-11] MEDS: cefTRIAXone 1 gm/50 mL NS BAG 1 GM/50 ML BAG IVPB SCH (05:17)
[2021-05-11] MEDS: Polyethylene Glycol 3350 17 GM PACKET PO SCH (07:52)
[2021-05-11] MEDS: Potassium Chlor 20 meq TAB.ER PO SCH (07:56)
[2021-05-11] MEDS: Enoxaparin 30 MG/0.3 ML SYR SUBCUT SCH (07:56)
[2021-05-11 11:35] VITALS: BP 125/50
[2021-05-11 11:58] LABS: Magnesium 1.7 mg/dL (1.9-2.7); Potassium 4.6 mmol/L (3.5-5.0)
== END 2021-05-11 16:20 | disposition home or self-care (01) | DRG 393 ==
LOC: ED 13:20 → SUATTDRO 05-06 01:09 → MEDTELE 05-06 01:09
PROVIDERS: ADMIT Internal Medicine; ATTEND Internal Medicine

== ENCOUNTER 2022-07-18 12:37 | Inpatient (IN) ==
[2022-07-18] MEDS ORDERED: Lactated Ringers 1000 ml BAG 1,000 ML IV ONE (15:04)
[2022-07-18] MEDS ORDERED: Morphine 4 MG/ML VIAL (1 ml) IV ONE ×2 (15:05→17:13)
[2022-07-18 15:22] LABS: ABS Basophils 0.1 10^3/ul (0-0.2); ABS Eosinophils 0.1 10^3/ul (0-0.6); ABS Lymphocytes 1.5 10^3/ul (1.0-4.8); ABS Monocytes 0.5 10^3/ul (0-0.8); ABS Neutrophils 10.1 10^3/ul (1.5-7.7); Eosinophil % 0.5 %; Hematocrit 33 % (35-47); Hemoglobin 10.3 g/dL (12.0-16.0); Lymphocyte % 12.1 %; Mean Corpuscular HGB Conc 31 g/dL (31-36); Mean Corpuscular Hemoglobin 23 pg (27-31); Mean Corpuscular Volume 73 fL (80-97); Mean Platelet Volume 8.3 fL (7.4-10.4); Platelet Count 235 10^3/uL (150-450); Red Blood Count 4.52 10^6 /uL (3.70-4.87); Red Cell Distribution Width 19 % (10-15); White Blood Count 12.2 10^3/uL (3.5-10.8)
[2022-07-18 16:15] LABS: TSH Ultra Thyroid Stim Horm 1.34 mcIU/mL (0.34-5.60)
[2022-07-18 16:48] LABS: Albumin 3.9 g/dL (3.2-5.2); Albumin/Globulin Ratio 1.1 (1-3); Calcium 9.5 mg/dL (8.6-10.3); Creatinine, Serum 0.97 mg/dL (0.51-0.95); Globulin 3.4 g/dL (2-4); Magnesium 1.6 mg/dL (1.9-2.7); Potassium 3.2 mmol/L (3.5-5.0); Total Bilirubin 0.6 mg/dL (0.2-1.0); Total Protein 7.3 g/dL (6.4-8.9); eGFR CKD-EPI 59.1 (>60)
[2022-07-18] MEDS ORDERED: Iodixanol (CONTRAST) 320 MG/ML 100 ML SDV IV ONE (17:04)
[2022-07-18 18:28] LABS: High Sensitivity Troponin 1 Hr 6 pg/mL (<15)
[2022-07-18] MEDS ORDERED: Potassium Chlor 20 meq TAB.ER PO ONE (18:46)
[2022-07-18] MEDS ORDERED: Magnesium Hydroxide LIQ 30 ML UDC PO PRN (18:49)
[2022-07-18] MEDS ORDERED: Magnesium Hydroxide LIQ 30 ML UDC PO ONE (18:52)
[2022-07-18] MEDS ORDERED: cefTRIAXone 1 gm/50 mL D5W 1 GM/50 ML BAG IV SCH (20:00)
[2022-07-18] MEDS: Enoxaparin 40 MG/0.4 ML SYR SUBCUT SCH (20:17)
[2022-07-18 20:33] LABS: C Reactive Protein 84.67 mg/L (<8.01)
[2022-07-19 06:41] LABS: ABS Basophils 0.1 10^3/ul (0-0.2); ABS Eosinophils 0.2 10^3/ul (0-0.6); ABS Lymphocytes 2.2 10^3/ul (1.0-4.8); ABS Monocytes 0.6 10^3/ul (0-0.8); ABS Neutrophils 7.5 10^3/ul (1.5-7.7); Hematocrit 29 % (35-47); Lymphocyte % 20.5 %; Mean Corpuscular HGB Conc 31 g/dL (31-36); Mean Corpuscular Hemoglobin 23 pg (27-31); Mean Corpuscular Volume 73 fL (80-97); Mean Platelet Volume 8.1 fL (7.4-10.4); Platelet Count 217 10^3/uL (150-450); Red Blood Count 3.94 10^6 /uL (3.70-4.87); Red Cell Distribution Width 19 % (10-15); White Blood Count 10.5 10^3/uL (3.5-10.8)
[2022-07-19 07:14] LABS: Creatinine, Serum 0.95 mg/dL (0.51-0.95); Potassium 4.2 mmol/L (3.5-5.0); eGFR CKD-EPI 60.6 (>60)
[2022-07-19] MEDS ORDERED: Senna TAB 8.6 mg TAB PO PRN (07:25)
[2022-07-19 08:08] LABS: Magnesium 1.7 mg/dL (1.9-2.7)
[2022-07-19] MEDS ORDERED: Magnesium Sulfate IV 3 GM in NS 0.9% 100 ml BAG 100 ML IVPB ONE (08:33)
[2022-07-19 09:25] LABS: Vitamin D Total 25(OH) 18.8 ng/mL (20-50)
[2022-07-19 18:18] LABS: Urine Appearance Cloudy; Urine Bilirubin Negative (Negative); Urine Blood Negative (Negative); Urine Color Yellow; Urine Glucose Negative (Negative); Urine Ketones Trace (Negative); Urine Nitrite Negative (Negative); Urine Protein Negative (Negative); Urine Specific Gravity 1.035 (1.002-1.030); Urine Urobilinogen Negative (Negative)
[2022-07-19 18:29] LABS: Urine Bacteria 1+ (Absent); Urine Red Blood Cell 1+(3-5/hpf) (Absent); Urine Squamous Epithelial Cell Present (Absent); Urine White Blood Cell 1+(6-10/hpf) (Absent)
[2022-07-19] MEDS: Enoxaparin 40 MG/0.4 ML SYR SUBCUT SCH (20:19)
[2022-07-20 06:15] LABS: ABS Basophils 0.1 10^3/ul (0-0.2); ABS Eosinophils 0.3 10^3/ul (0-0.6); ABS Lymphocytes 3.6 10^3/ul (1.0-4.8); ABS Monocytes 0.7 10^3/ul (0-0.8); ABS Neutrophils 8.1 10^3/ul (1.5-7.7); Hematocrit 30 % (35-47); Hemoglobin 9.3 g/dL (12.0-16.0); Mean Corpuscular HGB Conc 32 g/dL (31-36); Mean Corpuscular Hemoglobin 23 pg (27-31); Mean Corpuscular Volume 73 fL (80-97); Mean Platelet Volume 8.2 fL (7.4-10.4); Platelet Count 261 10^3/uL (150-450); Red Blood Count 4.05 10^6 /uL (3.70-4.87); Red Cell Distribution Width 19 % (10-15); White Blood Count 12.7 10^3/uL (3.5-10.8)
[2022-07-20 06:24] LABS: Calcium 8.7 mg/dL (8.6-10.3); Creatinine, Serum 1.08 mg/dL (0.51-0.95); Potassium 4.2 mmol/L (3.5-5.0); eGFR CKD-EPI 51.9 (>60)
[2022-07-20] MEDS: Enoxaparin 40 MG/0.4 ML SYR SUBCUT SCH (21:52)
[2022-07-21 06:30] LABS: ABS Eosinophils 0.4 10^3/ul (0-0.6); ABS Lymphocytes 2.8 10^3/ul (1.0-4.8); ABS Monocytes 0.6 10^3/ul (0-0.8); ABS Neutrophils 5.5 10^3/ul (1.5-7.7); Eosinophil % 4.1 %; Hematocrit 29 % (35-47); Hemoglobin 8.9 g/dL (12.0-16.0); Mean Corpuscular HGB Conc 31 g/dL (31-36); Mean Corpuscular Hemoglobin 23 pg (27-31); Mean Corpuscular Volume 74 fL (80-97); Mean Platelet Volume 8.2 fL (7.4-10.4); Platelet Count 245 10^3/uL (150-450); Red Blood Count 3.86 10^6 /uL (3.70-4.87); Red Cell Distribution Width 19 % (10-15); White Blood Count 9.3 10^3/uL (3.5-10.8)
[2022-07-21 06:40] LABS: Calcium 8.9 mg/dL (8.6-10.3); Creatinine, Serum 1.02 mg/dL (0.51-0.95); eGFR CKD-EPI 55.6 (>60)
[2022-07-21] MEDS: Enoxaparin 40 MG/0.4 ML SYR SUBCUT SCH (21:25)
[2022-07-22 15:08] LABS: Ferritin 27.5 ng/mL (11-307)
[2022-07-22] MEDS: Ferric Gluconate IV 125 MG in NS 0.9% 100 ML IVPB SCH (17:17)
[2022-07-22] MEDS: Enoxaparin 40 MG/0.4 ML SYR SUBCUT SCH (19:51)
[2022-07-23 05:52] LABS: Creatinine, Serum 0.94 mg/dL (0.51-0.95); Magnesium 1.6 mg/dL (1.9-2.7); Potassium 4.2 mmol/L (3.5-5.0); eGFR CKD-EPI 61.3 (>60)
[2022-07-23] MEDS ORDERED: Magnesium Sulf 4 GM/100 ML IV 4,000 MG/100 ML BAG IVPB ONE (08:00)
[2022-07-23] MEDS ORDERED: Ferric Gluconate IV 125 MG in Premix IV 0 ML IV PUSH SCH (09:00)
[2022-07-23] MEDS: Ferric Gluconate IV 125 MG in NS 0.9% 100 ML IVPB SCH (12:46)
[2022-07-23] MEDS: Enoxaparin 40 MG/0.4 ML SYR SUBCUT SCH (21:11)
[2022-07-24 08:52] LABS: Rapid COVID-19 Molecular Undetected (Undetected)
[2022-07-24] MEDS: Ferric Gluconate IV 125 MG in NS 0.9% 100 ML IVPB SCH (09:32)
[2022-07-24 11:01] VITALS: BP 142/80
== END 2022-07-24 14:14 | DRG 552 ==
LOC: ED 12:37 → EDHOLD 12:37 → SUATTDRO 18:47 → SSU 20:50 → SUATTDRO 07-19 13:52
PROVIDERS: ADMIT Internal Medicine; ATTEND Family Medicine

== ENCOUNTER 2022-11-01 13:01 | Inpatient (IN) ==
[2022-11-01 13:44] LABS: ABS Basophils 0.1 10^3/uL (0.0-0.1); ABS Eosinophils 0.5 10^3/uL (0.0-0.5); ABS Lymphocytes 2.1 10^3/uL (1.0-4.8); ABS Monocytes 0.5 10^3/uL (0.0-0.9); ABS Neutrophils 5.9 10^3/uL (1.5-7.6); ABS Nucleated RBC 0.01 10^3/ul; Eosinophil % 5.3 %; Hematocrit 36.5 % (35-45); Hemoglobin 11.8 g/dL (11.5-14.3); Lymphocyte % 23.2 %; Mean Corpuscular Hemoglobin 26.1 pg (27-33); Mean Corpuscular Hgb Conc 32.4 g/dL (31-36); Mean Corpuscular Volume 80.6 fL (80-97); Nucleated Red Blood Cells % 0.1 /100 WBC (0.0-0.4); Platelet Count 248 10^3/uL (150-450); Red Blood Count 4.52 10^6/uL (3.63-4.92); Red Cell Distribution Width 19.2 % (12-17)
[2022-11-01 15:08] LABS: Albumin 3.8 g/dL (3.2-5.2); Albumin/Globulin Ratio 1.2 (1-3); Calcium 9.2 mg/dL (8.6-10.3); Creatinine, Serum 0.81 mg/dL (0.51-0.95); Globulin 3.2 g/dL (2-4); Total Bilirubin 0.5 mg/dL (0.2-1.0); eGFR CKD-EPI 73.3 (>60)
[2022-11-01 15:11] LABS: Urine Appearance Turbid; Urine Bilirubin Negative (Negative); Urine Blood Negative (Negative); Urine Color Yellow; Urine Glucose Negative (Negative); Urine Ketones Negative (Negative); Urine Nitrite Positive (Negative); Urine Protein Negative (Negative); Urine Specific Gravity 1.014 (1.002-1.030); Urine Urobilinogen Negative (Negative)
[2022-11-01 15:15] LABS: High Sensitivity Troponin 1 Hr 3 pg/mL (<15)
[2022-11-01 15:28] LABS: Urine Bacteria 1+ (Absent); Urine Red Blood Cell 2+(6-10/hpf) (Absent); Urine White Blood Cell 3+(>20/hpf) (Absent)
[2022-11-01] MEDS ORDERED: cefTRIAXone 1 gm/50 mL D5W 1 GM/50 ML BAG IV ONE (15:40)
[2022-11-01] MEDS ORDERED: Iodixanol (CONTRAST) 320 MG/ML 100 ML SDV IV ONE (15:45)
[2022-11-01] MEDS ORDERED: Ondansetron ODT 4 mg TAB 4 MG TAB PO PRN (20:19)
[2022-11-01] MEDS ORDERED: Remdesivir 100 mg Vial 200 MG in NS 0.9% 250 ml 210 ML IV ONE (21:33)
[2022-11-01 22:27] LABS: INR 1.23 (0.88-1.18)
[2022-11-01] MEDS: NS 0.9% 1000 ml BAG 1,000 ML IV SCH (22:27)
[2022-11-01 22:44] LABS: Albumin 3.5 g/dL (3.2-5.2); Albumin/Globulin Ratio 1.1 (1-3); Calcium 8.9 mg/dL (8.6-10.3); Creatinine, Serum 0.81 mg/dL (0.51-0.95); Globulin 3.1 g/dL (2-4); Potassium 3.7 mmol/L (3.5-5.0); Total Bilirubin 0.4 mg/dL (0.2-1.0); Total Protein 6.6 g/dL (6.4-8.9); eGFR CKD-EPI 73.3 (>60)
[2022-11-01] MEDS: Enoxaparin 40 MG/0.4 ML SYR SUBCUT SCH (23:54)
[2022-11-02 05:57] LABS: ABS Basophils 0.1 10^3/uL (0.0-0.1); ABS Eosinophils 0.4 10^3/uL (0.0-0.5); ABS Lymphocytes 1.9 10^3/uL (1.0-4.8); ABS Monocytes 0.4 10^3/uL (0.0-0.9); ABS Nucleated RBC 0.01 10^3/ul; Eosinophil % 5.3 %; Hematocrit 32.6 % (35-45); Hemoglobin 10.7 g/dL (11.5-14.3); Lymphocyte % 28.7 %; Mean Corpuscular Hemoglobin 26.1 pg (27-33); Mean Corpuscular Hgb Conc 32.8 g/dL (31-36); Mean Corpuscular Volume 79.4 fL (80-97); Nucleated Red Blood Cells % 0.1 /100 WBC (0.0-0.4); Platelet Count 185 10^3/uL (150-450); Red Blood Count 4.11 10^6/uL (3.63-4.92); Red Cell Distribution Width 19.4 % (12-17); White Blood Count 6.7 10^3/uL (3.8-11.8)
[2022-11-02 06:02] LABS: INR 1.25 (0.88-1.18)
[2022-11-02] MEDS ORDERED: Dextrose 50% Syringe 50 ml 25 GM/50 ML SYRINGE IV PUSH PRN (06:27)
[2022-11-02 06:54] LABS: Albumin 3.1 g/dL (3.2-5.2); Albumin/Globulin Ratio 1.2 (1-3); Calcium 8.3 mg/dL (8.6-10.3); Creatinine, Serum 0.77 mg/dL (0.51-0.95); Globulin 2.5 g/dL (2-4); Magnesium 1.3 mg/dL (1.9-2.7); Potassium 3.6 mmol/L (3.5-5.0); Total Bilirubin 0.3 mg/dL (0.2-1.0); Total Protein 5.6 g/dL (6.4-8.9); eGFR CKD-EPI 77.9 (>60)
[2022-11-02] MEDS ORDERED: Magnesium Sulf 4 GM/100 ML IV 4,000 MG/100 ML BAG IVPB ONE (07:05)
[2022-11-02] MEDS: NS 0.9% 1000 ml BAG 1,000 ML IV SCH ×2 (09:04→21:38)
[2022-11-02] MEDS ORDERED: cefTRIAXone 1 gm/50 mL D5W 1 GM/50 ML BAG IV SCH (17:00)
[2022-11-02] MEDS: Remdesivir 100 mg Vial 100 MG in NS 0.9% 250 ml 230 ML IV SCH (21:34)
[2022-11-02] MEDS: Enoxaparin 40 MG/0.4 ML SYR SUBCUT SCH (21:34)
[2022-11-03 06:00] LABS: ABS Monocytes 0.2 10^3/uL (0.0-0.9); ABS Neutrophils 5.1 10^3/uL (1.5-7.6); ABS Nucleated RBC 0.01 10^3/ul; Eosinophil % 0.1 %; Hematocrit 33.8 % (35-45); Lymphocyte % 15.9 %; Mean Corpuscular Hemoglobin 25.9 pg (27-33); Mean Corpuscular Hgb Conc 32.5 g/dL (31-36); Mean Corpuscular Volume 79.9 fL (80-97); Mean Platelet Volume 7.8 fL (7.5-11.2); Nucleated Red Blood Cells % 0.1 /100 WBC (0.0-0.4); Platelet Count 204 10^3/uL (150-450); Red Blood Count 4.23 10^6/uL (3.63-4.92); Red Cell Distribution Width 19.3 % (12-17); White Blood Count 6.3 10^3/uL (3.8-11.8)
[2022-11-03 06:06] LABS: INR 1.2 (0.88-1.18)
[2022-11-03 06:46] LABS: Albumin 3.4 g/dL (3.2-5.2); Albumin/Globulin Ratio 1.1 (1-3); C Reactive Protein 6.43 mg/L (<8.01); Calcium 8.2 mg/dL (8.6-10.3); Creatinine, Serum 0.66 mg/dL (0.51-0.95); Globulin 3.1 g/dL (2-4); Potassium 3.9 mmol/L (3.5-5.0); Total Bilirubin 0.3 mg/dL (0.2-1.0); Total Protein 6.5 g/dL (6.4-8.9); eGFR CKD-EPI 88.6 (>60)
[2022-11-03] MEDS: NS 0.9% 1000 ml BAG 1,000 ML IV SCH ×2 (08:25→18:38)
[2022-11-03] MEDS ORDERED: fentaNYL 100 mcg/2 ml 50 MCG/ML VIAL ONE (19:18)
[2022-11-03] MEDS ORDERED: Midazolam 10 mg/10 ml VIAL 1 mg/ml 10 ml VIAL (10 mg) ONE (19:18)
[2022-11-04] MEDS: Remdesivir 100 mg Vial 100 MG in NS 0.9% 250 ml 230 ML IV SCH ×2 (00:06→20:33)
[2022-11-04 06:57] LABS: ABS Basophils 0.1 10^3/uL (0.0-0.1); ABS Eosinophils 0.2 10^3/uL (0.0-0.5); ABS Lymphocytes 2.2 10^3/uL (1.0-4.8); ABS Monocytes 0.3 10^3/uL (0.0-0.9); ABS Neutrophils 3.4 10^3/uL (1.5-7.6); Eosinophil % 3.7 %; Hematocrit 30.8 % (35-45); Mean Corpuscular Hemoglobin 26.4 pg (27-33); Mean Corpuscular Hgb Conc 32.5 g/dL (31-36); Nucleated Red Blood Cells % 0.1 /100 WBC (0.0-0.4); Platelet Count 186 10^3/uL (150-450); Red Blood Count 3.81 10^6/uL (3.63-4.92); White Blood Count 6.2 10^3/uL (3.8-11.8)
[2022-11-04 07:02] LABS: INR 1.3 (0.88-1.18)
[2022-11-04 07:24] LABS: Albumin/Globulin Ratio 1.1 (1-3); Calcium 8.1 mg/dL (8.6-10.3); Creatinine, Serum 0.63 mg/dL (0.51-0.95); Globulin 2.7 g/dL (2-4); Phosphorus 2.4 mg/dL (2.5-5.0); Potassium 3.4 mmol/L (3.5-5.0); Total Bilirubin 0.3 mg/dL (0.2-1.0); Total Protein 5.7 g/dL (6.4-8.9); eGFR CKD-EPI 89.6 (>60)
[2022-11-04] MEDS ORDERED: Potassium Phosphate IV 10 MMOL in NS 0.9% 250 ml 250 ML IVPB ONE (08:03)
[2022-11-04] MEDS: NS 0.9% 1000 ml BAG 1,000 ML IV SCH (10:22)
[2022-11-04] MEDS ORDERED: Glycerin ADULT 2.4 gm SUPP PR PRN (10:49)
[2022-11-04] MEDS ORDERED: Potassium Chlor 20 meq TAB.ER PO ONE (10:49)
[2022-11-04] MEDS: Enoxaparin 40 MG/0.4 ML SYR SUBCUT SCH (18:12)
[2022-11-05 08:45] LABS: ABS Eosinophils 0.1 10^3/uL (0.0-0.5); ABS Lymphocytes 2.4 10^3/uL (1.0-4.8); ABS Monocytes 0.4 10^3/uL (0.0-0.9); ABS Neutrophils 4.8 10^3/uL (1.5-7.6); Hematocrit 32.3 % (35-45); Hemoglobin 10.5 g/dL (11.5-14.3); Lymphocyte % 30.9 %; Mean Corpuscular Hemoglobin 26.3 pg (27-33); Mean Corpuscular Hgb Conc 32.6 g/dL (31-36); Mean Corpuscular Volume 80.6 fL (80-97); Mean Platelet Volume 7.8 fL (7.5-11.2); Platelet Count 193 10^3/uL (150-450); Red Cell Distribution Width 19.7 % (12-17); White Blood Count 7.7 10^3/uL (3.8-11.8)
[2022-11-05 08:55] LABS: INR 1.24 (0.88-1.18)
[2022-11-05 09:21] LABS: Albumin 3.1 g/dL (3.2-5.2); Albumin/Globulin Ratio 1.1 (1-3); Calcium 8.6 mg/dL (8.6-10.3); Creatinine, Serum 0.63 mg/dL (0.51-0.95); Globulin 2.9 g/dL (2-4); Magnesium 1.4 mg/dL (1.9-2.7); Phosphorus 2.1 mg/dL (2.5-5.0); Potassium 3.8 mmol/L (3.5-5.0); Total Bilirubin 0.3 mg/dL (0.2-1.0); eGFR CKD-EPI 89.6 (>60)
[2022-11-05] MEDS: Potassium & Sodium Phos 250 mg = 1 PACKET PO SCH ×3 (11:29→20:23)
[2022-11-05] MEDS ORDERED: Magnesium Sulf 4 GM/100 ML IV 4,000 MG/100 ML BAG IVPB ONE (12:28)
[2022-11-05] MEDS: Enoxaparin 40 MG/0.4 ML SYR SUBCUT SCH (17:17)
[2022-11-05] MEDS: Remdesivir 100 mg Vial 100 MG in NS 0.9% 250 ml 230 ML IV SCH (20:26)
[2022-11-06 06:50] LABS: ABS Basophils 0.1 10^3/uL (0.0-0.1); ABS Lymphocytes 2.8 10^3/uL (1.0-4.8); ABS Monocytes 0.4 10^3/uL (0.0-0.9); ABS Neutrophils 5.4 10^3/uL (1.5-7.6); Eosinophil % 0.5 %; Hematocrit 32.8 % (35-45); Hemoglobin 10.6 g/dL (11.5-14.3); Lymphocyte % 32.1 %; Mean Corpuscular Hemoglobin 26.1 pg (27-33); Mean Corpuscular Hgb Conc 32.4 g/dL (31-36); Mean Corpuscular Volume 80.7 fL (80-97); Mean Platelet Volume 8.1 fL (7.5-11.2); Platelet Count 198 10^3/uL (150-450); Red Blood Count 4.06 10^6/uL (3.63-4.92); Red Cell Distribution Width 19.5 % (12-17); White Blood Count 8.8 10^3/uL (3.8-11.8)
[2022-11-06 06:57] LABS: INR 1.25 (0.88-1.18)
[2022-11-06 07:51] LABS: Albumin 3.2 g/dL (3.2-5.2); Albumin/Globulin Ratio 1.1 (1-3); Calcium 8.5 mg/dL (8.6-10.3); Creatinine, Serum 0.67 mg/dL (0.51-0.95); Globulin 2.8 g/dL (2-4); Magnesium 2.1 mg/dL (1.9-2.7); Phosphorus 2.5 mg/dL (2.5-5.0); Potassium 4.2 mmol/L (3.5-5.0); Total Bilirubin 0.4 mg/dL (0.2-1.0); eGFR CKD-EPI 88.3 (>60)
[2022-11-06] MEDS: Potassium & Sodium Phos 250 mg = 1 PACKET PO SCH ×3 (10:31→21:44)
[2022-11-06] MEDS: Enoxaparin 40 MG/0.4 ML SYR SUBCUT SCH (16:37)
[2022-11-07 06:40] LABS: ABS Basophils 0.1 10^3/uL (0.0-0.1); ABS Lymphocytes 3.3 10^3/uL (1.0-4.8); ABS Monocytes 0.5 10^3/uL (0.0-0.9); ABS Neutrophils 4.8 10^3/uL (1.5-7.6); Eosinophil % 0.6 %; Hematocrit 31.9 % (35-45); Hemoglobin 10.4 g/dL (11.5-14.3); Lymphocyte % 37.6 %; Mean Corpuscular Hemoglobin 26.3 pg (27-33); Mean Corpuscular Hgb Conc 32.7 g/dL (31-36); Mean Corpuscular Volume 80.2 fL (80-97); Mean Platelet Volume 8.1 fL (7.5-11.2); Platelet Count 184 10^3/uL (150-450); Red Blood Count 3.97 10^6/uL (3.63-4.92); Red Cell Distribution Width 19.4 % (12-17); White Blood Count 8.7 10^3/uL (3.8-11.8)
[2022-11-07 07:26] LABS: Calcium 8.5 mg/dL (8.6-10.3); Creatinine, Serum 0.71 mg/dL (0.51-0.95); Potassium 4.4 mmol/L (3.5-5.0); eGFR CKD-EPI 85.9 (>60)
[2022-11-07] MEDS: Potassium & Sodium Phos 250 mg = 1 PACKET PO SCH ×3 (07:47→22:04)
[2022-11-07] MEDS: Enoxaparin 40 MG/0.4 ML SYR SUBCUT SCH (16:49)
[2022-11-08 06:21] LABS: ABS Eosinophils 0.3 10^3/uL (0.0-0.5); ABS Lymphocytes 3.3 10^3/uL (1.0-4.8); ABS Monocytes 0.5 10^3/uL (0.0-0.9); ABS Neutrophils 3.7 10^3/uL (1.5-7.6); ABS Nucleated RBC 0.02 10^3/ul; Hematocrit 34.6 % (35-45); Hemoglobin 11.2 g/dL (11.5-14.3); Lymphocyte % 41.9 %; Mean Corpuscular Hemoglobin 26.1 pg (27-33); Mean Corpuscular Hgb Conc 32.3 g/dL (31-36); Mean Corpuscular Volume 80.7 fL (80-97); Mean Platelet Volume 8.4 fL (7.5-11.2); Nucleated Red Blood Cells % 0.2 /100 WBC (0.0-0.4); Platelet Count 194 10^3/uL (150-450); Red Blood Count 4.29 10^6/uL (3.63-4.92); Red Cell Distribution Width 19.6 % (12-17); White Blood Count 7.9 10^3/uL (3.8-11.8)
[2022-11-08 06:34] LABS: Calcium 8.9 mg/dL (8.6-10.3); Creatinine, Serum 0.86 mg/dL (0.51-0.95); Potassium 4.3 mmol/L (3.5-5.0); eGFR CKD-EPI 68.3 (>60)
[2022-11-08] MEDS: Potassium & Sodium Phos 250 mg = 1 PACKET PO SCH (08:39)
[2022-11-08 13:56] VITALS: BP 125/70
== END 2022-11-08 13:26 | disposition swing bed (61) | DRG 177 ==
LOC: EDHOLD 13:01 → ED 13:01 → SUATTDRO 19:14 → MED 21:59 → SUATTDRO 11-02 15:02
PROVIDERS: ADMIT Internal Medicine; ATTEND Internal Medicine

== ENCOUNTER 2022-11-08 13:36 | Inpatient (IN) ==
[2022-11-08] MEDS ORDERED: Magnesium Hydroxide LIQ 30 ML UDC PO PRN (13:58)
[2022-11-08] MEDS ORDERED: Senna TAB 8.6 mg TAB PO PRN (13:58)
[2022-11-08] MEDS ORDERED: Ondansetron ODT 4 mg TAB 4 MG TAB PO PRN (14:51)
[2022-11-08] MEDS: Enoxaparin 40 MG/0.4 ML SYR SUBCUT SCH (17:54)
[2022-11-09] MEDS: Enoxaparin 40 MG/0.4 ML SYR SUBCUT SCH (17:32)
[2022-11-13 05:26] VITALS: BP 128/75
== END 2022-11-13 11:30 | disposition home or self-care (01) | DRG 177 ==
LOC: MED → OBSVTOIN 14:42 → SUATTDRO 14:42
PROVIDERS: ADMIT Internal Medicine; ATTEND Hospitalist

== ENCOUNTER 2023-07-25 14:01 | Inpatient (IN) ==
[2023-07-25 14:48] LABS: ABS Basophils 0.1 10^3/uL (0.0-0.1); ABS Eosinophils 0.6 10^3/uL (0.0-0.5); ABS Lymphocytes 1.5 10^3/uL (1.0-4.8); ABS Monocytes 0.3 10^3/uL (0.0-0.9); ABS Neutrophils 4.6 10^3/uL (1.5-7.6); ABS Nucleated RBC 0.01 10^3/ul; Eosinophil % 8.3 %; Hematocrit 31.2 % (35-45); Hemoglobin 10.4 g/dL (11.5-14.3); Lymphocyte % 21.6 %; Mean Corpuscular Hemoglobin 28.6 pg (27-33); Mean Corpuscular Hgb Conc 33.2 g/dL (31-36); Mean Platelet Volume 8.2 fL (7.5-11.2); Nucleated Red Blood Cells % 0.1 %/100WBC (0.0-0.8); Platelet Count 193 10^3/uL (150-450); Red Blood Count 3.63 10^6/uL (3.63-4.92); Red Cell Distribution Width 16.4 % (12-17)
[2023-07-25 15:10] LABS: AST 17 U/L (13-39); High Sens Troponin Baseline < 3 pg/mL (<15)
[2023-07-25 15:11] LABS: ALT 7 U/L (7-52); Albumin 2.8 g/dL (3.2-5.2); Alkaline Phosphatase 61 U/L (35-149); Anion Gap 5 mmol/L (2-16); Blood Urea Nitrogen 15 mg/dL (6-24); CO2 Carbon Dioxide 26 mmol/L (22-32); Calcium 7.4 mg/dL (8.6-10.3); Chloride 109 mmol/L (101-111); Creatinine, Serum 0.67 mg/dL (0.51-0.95); Globulin 2.7 g/dL (2-4); Glucose 144 mg/dL (70-100); Sodium 140 mmol/L (135-145); Total Bilirubin 0.3 mg/dL (0.2-1.0); Total Protein 5.5 g/dL (6.4-8.9); eGFR CKD-EPI 87.8 (>60)
[2023-07-25] MEDS ORDERED: Albuterol 2.5mg/3 ml (0.083%) NEB.SOLN INH ONE (15:13)
[2023-07-25] MEDS: Albuterol 2.5mg/3 ml (0.083%) NEB.SOLN INH SCH (15:21)
[2023-07-25] MEDS ORDERED: Albuterol (2.5 MG) 0.5 % CONC 0.5 ML NEB.SOLN INH ONE (16:00)
[2023-07-25 16:47] LABS: High Sensitivity Troponin 1 Hr < 3 pg/mL (<15)
[2023-07-25] MEDS: cefTRIAXone 1 gm/50 mL D5W 1 GM/50 ML BAG IV SCH (22:34)
[2023-07-25] MEDS: methylPREDNISolone SOD SUCC 40 mg/ml 1 ml VIAL IV ONE (22:34)
[2023-07-25] MEDS: Furosemide 40 mg/4 ml IV VIAL IV SLOW PU ONE (22:41)
[2023-07-25 23:57] LABS: Urine Appearance Clear; Urine Bilirubin Negative (Negative); Urine Blood Negative (Negative); Urine Color Colorless; Urine Glucose Negative (Negative); Urine Ketones Negative (Negative); Urine Nitrite Negative (Negative); Urine Protein Negative (Negative); Urine Specific Gravity 1.005 (1.002-1.030); Urine Urobilinogen Negative (Negative)
[2023-07-26] MEDS: Albuterol/Ipratropium NEB.SOL (2.5/0.5 MG) 3 ML NEB.SOLN INH SCH ×2 (00:34→14:19)
[2023-07-26] MEDS: Pantoprazole VIAL 40 MG VIAL IV ONE (01:23)
[2023-07-26] MEDS: Enoxaparin 40 MG/0.4 ML SYR SUBCUT SCH (01:23)
[2023-07-26 01:24] LABS: PCO2 Arterial 46 mmHg (35-45); PO2 Arterial 107 mmHg (80-100)
[2023-07-26] MEDS: Insulin GLARGINE 100 un/ml 10 ml VIAL SUBCUT SCH (01:24)
[2023-07-26] MEDS: Acetaminophen IV 1 GM/100ML 1,000 MG/100 ML BAG IV ONE ×2 (05:00→23:49)
[2023-07-26] MEDS: methylPREDNISolone SOD SUCC 40 mg/ml 1 ml VIAL IV SCH (05:40)
[2023-07-26 05:58] LABS: ABS Lymphocytes 0.6 10^3/uL (1.0-4.8); ABS Monocytes 0.1 10^3/uL (0.0-0.9); ABS Neutrophils 4.3 10^3/uL (1.5-7.6); Eosinophil % 0.1 %; Hematocrit 30.9 % (35-45); Hemoglobin 10.3 g/dL (11.5-14.3); Lymphocyte % 11.6 %; Mean Corpuscular Hemoglobin 28.4 pg (27-33); Mean Corpuscular Hgb Conc 33.2 g/dL (31-36); Mean Corpuscular Volume 85.7 fL (80-97); Mean Platelet Volume 8.1 fL (7.5-11.2); Nucleated Red Blood Cells % 0.1 %/100WBC (0.0-0.8); Platelet Count 184 10^3/uL (150-450); Red Blood Count 3.61 10^6/uL (3.63-4.92); Red Cell Distribution Width 16.2 % (12-17)
[2023-07-26 06:15] LABS: Albumin 3.5 g/dL (3.2-5.2); Albumin/Globulin Ratio 1.1 (1-3); Calcium 8.8 mg/dL (8.6-10.3); Creatinine, Serum 0.9 mg/dL (0.51-0.95); Globulin 3.2 g/dL (2-4); HDL Cholesterol 47.9 mg/dL; Magnesium 1.4 mg/dL (1.9-2.7); Potassium 4.4 mmol/L (3.5-5.0); Total Bilirubin 0.4 mg/dL (0.2-1.0); Total Protein 6.7 g/dL (6.4-8.9); eGFR CKD-EPI 64.2 (>60)
[2023-07-26] MEDS: Nystatin TOP POWDER 15 GM BTL TOPICAL SCH (07:35)
[2023-07-26 08:00] LABS: Phosphorus 2.7 mg/dL (2.5-5.0)
[2023-07-26] MEDS: Magnesium Sulf 4 GM/100 ML IV 4,000 MG/100 ML BAG IVPB ONE (08:24)
[2023-07-26] MEDS ORDERED: Pantoprazole VIAL 40 MG VIAL IV SCH (09:00)
[2023-07-26] MEDS: Pantoprazole VIAL 40 MG VIAL IV SCH (09:58)
[2023-07-26] MEDS: Azithromycin 500 mg/250 ml NS 500 MG/250 ML BAG IVPB SCH (10:41)
[2023-07-26] MEDS: cefTRIAXone 1 gm/50 mL D5W 1 GM/50 ML BAG IV SCH (21:58)
[2023-07-27 03:53] LABS: Albumin 3.2 g/dL (3.2-5.2); Calcium 8.9 mg/dL (8.6-10.3); Creatinine, Serum 0.85 mg/dL (0.51-0.95); Globulin 3.1 g/dL (2-4); Magnesium 2.3 mg/dL (1.9-2.7); Potassium 4.2 mmol/L (3.5-5.0); Total Bilirubin 0.3 mg/dL (0.2-1.0); Total Protein 6.3 g/dL (6.4-8.9); eGFR CKD-EPI 68.8 (>60)
[2023-07-27 04:32] LABS: ABS Lymphocytes 0.7 10^3/uL (1.0-4.8); ABS Monocytes 0.2 10^3/uL (0.0-0.9); ABS Nucleated RBC 0.01 10^3/ul; Hematocrit 29.2 % (35-45); Hemoglobin 9.8 g/dL (11.5-14.3); Lymphocyte % 8.9 %; Mean Corpuscular Hemoglobin 28.8 pg (27-33); Mean Corpuscular Hgb Conc 33.7 g/dL (31-36); Mean Corpuscular Volume 85.4 fL (80-97); Mean Platelet Volume 8.4 fL (7.5-11.2); Nucleated Red Blood Cells % 0.1 %/100WBC (0.0-0.8); Platelet Count 171 10^3/uL (150-450); Red Blood Count 3.42 10^6/uL (3.63-4.92); Red Cell Distribution Width 16.3 % (12-17); White Blood Count 7.8 10^3/uL (3.8-11.8)
[2023-07-27] MEDS: Albuterol/Ipratropium NEB.SOL (2.5/0.5 MG) 3 ML NEB.SOLN INH SCH (07:35)
[2023-07-27] MEDS: Acetaminophen IV 1 GM/100ML 1,000 MG/100 ML BAG IV PRN (10:34)
[2023-07-27] MEDS: Dextrose 50% Syringe 50 ml 25 GM/50 ML SYRINGE IV PUSH PRN (12:32)
[2023-07-27] MEDS: Albuterol 2.5mg/3 ml (0.083%) NEB.SOLN INH PRN (17:24)
[2023-07-28 04:42] LABS: ABS Lymphocytes 0.8 10^3/uL (1.0-4.8); ABS Monocytes 0.2 10^3/uL (0.0-0.9); ABS Nucleated RBC 0.01 10^3/ul; Hemoglobin 9.8 g/dL (11.5-14.3); Lymphocyte % 9.8 %; Mean Corpuscular Hgb Conc 33.7 g/dL (31-36); Mean Corpuscular Volume 86.2 fL (80-97); Mean Platelet Volume 8.1 fL (7.5-11.2); Nucleated Red Blood Cells % 0.1 %/100WBC (0.0-0.8); Platelet Count 168 10^3/uL (150-450); Red Blood Count 3.37 10^6/uL (3.63-4.92); Red Cell Distribution Width 16.7 % (12-17)
[2023-07-28 05:01] LABS: Albumin 3.1 g/dL (3.2-5.2); Albumin/Globulin Ratio 1.1 (1-3); Calcium 8.6 mg/dL (8.6-10.3); Creatinine, Serum 0.82 mg/dL (0.51-0.95); Globulin 2.8 g/dL (2-4); Potassium 4.6 mmol/L (3.5-5.0); Total Bilirubin 0.3 mg/dL (0.2-1.0); Total Protein 5.9 g/dL (6.4-8.9); eGFR CKD-EPI 71.8 (>60)
[2023-07-28] MEDS: Furosemide 20 mg/2 ml IV VIAL IV ONE (09:49)
[2023-07-29 04:24] LABS: ABS Lymphocytes 0.6 10^3/uL (1.0-4.8); ABS Monocytes 0.3 10^3/uL (0.0-0.9); ABS Neutrophils 5.7 10^3/uL (1.5-7.6); ABS Nucleated RBC 0.01 10^3/ul; Eosinophil % 0.2 %; Hematocrit 28.4 % (35-45); Hemoglobin 9.5 g/dL (11.5-14.3); Lymphocyte % 9.4 %; Mean Corpuscular Hgb Conc 33.6 g/dL (31-36); Mean Corpuscular Volume 86.4 fL (80-97); Nucleated Red Blood Cells % 0.1 %/100WBC (0.0-0.8); Platelet Count 149 10^3/uL (150-450); Red Blood Count 3.29 10^6/uL (3.63-4.92); Red Cell Distribution Width 16.2 % (12-17); White Blood Count 6.7 10^3/uL (3.8-11.8)
[2023-07-29 04:35] LABS: Calcium 8.7 mg/dL (8.6-10.3); Creatinine, Serum 0.95 mg/dL (0.51-0.95); Magnesium 1.9 mg/dL (1.9-2.7); Phosphorus 2.7 mg/dL (2.5-5.0); Potassium 4.7 mmol/L (3.5-5.0); eGFR CKD-EPI 60.2 (>60)
[2023-07-29] MEDS: acetaZOLAMIDE IV 500 MG in NS 0.9% 50 ML 50 ML IVPB ONE (10:52)
[2023-07-29] MEDS: methylPREDNISolone SOD SUCC 40 mg/ml 1 ml VIAL IV SCH (18:13)
[2023-07-29] MEDS: Insulin GLARGINE 100 un/ml 10 ml VIAL SUBCUT SCH (21:47)
[2023-07-30 04:32] LABS: ABS Lymphocytes 1.3 10^3/uL (1.0-4.8); ABS Monocytes 0.5 10^3/uL (0.0-0.9); ABS Neutrophils 6.9 10^3/uL (1.5-7.6); ABS Nucleated RBC 0.01 10^3/ul; Eosinophil % 0.2 %; Hematocrit 30.3 % (35-45); Hemoglobin 10.1 g/dL (11.5-14.3); Lymphocyte % 15.3 %; Mean Corpuscular Hemoglobin 28.6 pg (27-33); Mean Corpuscular Hgb Conc 33.2 g/dL (31-36); Mean Platelet Volume 8.3 fL (7.5-11.2); Nucleated Red Blood Cells % 0.1 %/100WBC (0.0-0.8); Platelet Count 165 10^3/uL (150-450); Red Blood Count 3.53 10^6/uL (3.63-4.92); Red Cell Distribution Width 16.2 % (12-17); White Blood Count 8.8 10^3/uL (3.8-11.8)
[2023-07-30 05:03] LABS: Creatinine, Serum 0.92 mg/dL (0.51-0.95); Magnesium 1.8 mg/dL (1.9-2.7); Phosphorus 3.1 mg/dL (2.5-5.0); Potassium 4.7 mmol/L (3.5-5.0); eGFR CKD-EPI 62.6 (>60)
[2023-07-30] MEDS: Magnesium Sulfate 2 gm BAG 2 GM/50 ML BAG IVPB ONE (07:43)
[2023-07-30] MEDS: Pantoprazole VIAL 40 MG VIAL IV SCH (20:08)
[2023-07-31 04:29] LABS: ABS Basophils 0.1 10^3/uL (0.0-0.1); ABS Eosinophils 0.1 10^3/uL (0.0-0.5); ABS Lymphocytes 1.9 10^3/uL (1.0-4.8); ABS Monocytes 0.6 10^3/uL (0.0-0.9); ABS Neutrophils 7.4 10^3/uL (1.5-7.6); ABS Nucleated RBC 0.01 10^3/ul; Eosinophil % 0.7 %; Hematocrit 32.3 % (35-45); Lymphocyte % 18.8 %; Mean Corpuscular Hgb Conc 33.9 g/dL (31-36); Mean Corpuscular Volume 85.5 fL (80-97); Mean Platelet Volume 8.3 fL (7.5-11.2); Nucleated Red Blood Cells % 0.1 %/100WBC (0.0-0.8); Platelet Count 206 10^3/uL (150-450); Red Blood Count 3.78 10^6/uL (3.63-4.92); Red Cell Distribution Width 16.1 % (12-17)
[2023-07-31 05:08] LABS: Calcium 9.1 mg/dL (8.6-10.3); Phosphorus 3.9 mg/dL (2.5-5.0); Potassium 4.5 mmol/L (3.5-5.0)
[2023-07-31 05:23] LABS: eGFR CKD-EPI 56.6 (>60)
[2023-07-31] MEDS: Albuterol/Ipratropium NEB.SOL (2.5/0.5 MG) 3 ML NEB.SOLN INH PRN (08:14)
[2023-08-01 07:58] LABS: ABS Eosinophils 0.1 10^3/uL (0.0-0.5); ABS Lymphocytes 1.9 10^3/uL (1.0-4.8); ABS Monocytes 0.5 10^3/uL (0.0-0.9); ABS Neutrophils 7.5 10^3/uL (1.5-7.6); ABS Nucleated RBC 0.01 10^3/ul; Hemoglobin 11.5 g/dL (11.5-14.3); Lymphocyte % 19.3 %; Mean Corpuscular Hemoglobin 28.9 pg (27-33); Mean Corpuscular Volume 85.1 fL (80-97); Nucleated Red Blood Cells % 0.1 %/100WBC (0.0-0.8); Platelet Count 205 10^3/uL (150-450); Red Blood Count 3.99 10^6/uL (3.63-4.92); Red Cell Distribution Width 16.7 % (12-17)
[2023-08-01 08:28] LABS: Creatinine, Serum 1.04 mg/dL (0.51-0.95); Magnesium 1.9 mg/dL (1.9-2.7); Potassium 4.4 mmol/L (3.5-5.0)
[2023-08-01] MEDS: Magnesium Sulfate 2 gm BAG 2 GM/50 ML BAG IVPB ONE (10:47)
[2023-08-01] MEDS: Albuterol 2.5mg/3 ml (0.083%) NEB.SOLN INH SCH (21:17)
[2023-08-02 07:24] LABS: Albumin 3.4 g/dL (3.2-5.2); Albumin/Globulin Ratio 1.2 (1-3); Calcium 9.1 mg/dL (8.6-10.3); Creatinine, Serum 1.13 mg/dL (0.51-0.95); Globulin 2.9 g/dL (2-4); Potassium 4.2 mmol/L (3.5-5.0); Total Bilirubin 0.4 mg/dL (0.2-1.0); Total Protein 6.3 g/dL (6.4-8.9); eGFR CKD-EPI 48.9 (>60)
[2023-08-02] MEDS: NS 0.9% 1000 ml BAG 1,000 ML IV SCH (08:52)
[2023-08-02] MEDS: Furosemide 20 mg/2 ml IV VIAL IV ONE (18:46)
[2023-08-03] MEDS: methylPREDNISolone SOD SUCC 40 mg/ml 1 ml VIAL IV SCH (17:31)
[2023-08-03] MEDS: Enoxaparin 40 MG/0.4 ML SYR SUBCUT SCH (22:18)
[2023-08-05] MEDS ORDERED: Albuterol 2.5mg/3 ml (0.083%) NEB.SOLN INH PRN (07:46)
[2023-08-06 09:09] VITALS: BP 124/87
== END 2023-08-06 09:25 | disposition hospice, home (50) | DRG 189 ==
LOC: ED 14:01 → EDHOLD 21:18 → SUATTDRO 21:18 → ICU 07-26 04:29 → MED 07-31 10:48
PROVIDERS: ADMIT Student in an Organized Health Care Education/Training Program; ATTEND Hospitalist